=== PATIENT | male | born 1960 | race African-American/Black ===

== ENCOUNTER → 2016-08-07 | Outpatient (CLI) | payer BC ==
[2016-08-07 10:47] LABS: APPEARANCE,URINE SLIGHTLY-CLOUDY; BILIRUBIN,URINE NEGATIVE (NEGATIVE); GLUCOSE, URINE NEGATIVE (NEGATIVE); KETONES,URINE NEGATIVE (NEGATIVE); LEUKOCYTE ESTERASE,URINE NEGATIVE (NEGATIVE); NITRITE,URINE NEGATIVE (NEGATIVE); PROTEIN,URINE 30 mg/dL (NEGATIVE); URINE SPECIFIC GRAVITY 1.029; UROBILINOGEN,URINE NEGATIVE mg/dL (<2.0)
[2016-08-07 10:54] LABS: HEMATOCRIT 39.2 % (37.9-51.0); HEMOGLOBIN 13.2 g/dL (13.5-17.0); HGB HCT DIFFERENCE 0.4; MEAN CORPUSCULAR HEMOGLOBIN 30.8 pg (27.0-33.4); MEAN CORPUSCULAR HGB CONC 33.6 g/dL (32.0-36.0); MEAN CORPUSCULAR VOLUME 92 fl (80-97); RED BLOOD COUNT 4.28 10^6/uL (4.35-5.55); RED CELL DISTRIBUTION WIDTH 13.6 % (11.5-14.0); WHITE BLOOD COUNT 6.8 10^3/uL (4.0-10.5)
[2016-08-07 11:07] LABS: ALANINE AMINOTRANSFERASE 36 U/L (21-72); ALKALINE PHOSPHATASE 49 U/L (38-126); ANION GAP 11 (5-19); ASPARTATE AMINO TRANSFERASE 22 U/L (17-59); BILIRUBIN,TOTAL 1.5 mg/dL (0.2-1.3); BLOOD UREA NITROGEN 14 mg/dL (7-20); CALCIUM 9.3 mg/dL (8.4-10.2); CARBON DIOXIDE 29 mmol/L (22-30); CHLORIDE 99 mmol/L (98-107); CHOLESTEROL 114.54 mg/dL (0-200); CREATININE RESULT 0.85 mg/dL (0.52-1.25); Direct HDL 29 mg/dL (>40); GLUCOSE 161 mg/dL (75-110); MAGNESIUM 1.9 mg/dL (1.6-2.3); POTASSIUM 4.1 mmol/L (3.6-5.0); SODIUM 139.1 mmol/L (137-145); TRIGLYCERIDES 95 mg/dL (<150)
[2016-08-07 11:17] LABS: DIRECT LDL 68 mg/dL (<100)
== END ==
LOC: OD 09:30
PROVIDERS: ATTEND Internal Medicine Cardiovascular Disease
DX: Z79.899 Other long term (current) drug therapy (principal); E78.00 Pure hypercholesterolemia, unspecified
CPT/HCPCS: 36415; 80048; 80061; 80076; 81001; 82272; 83735; 85027

== ENCOUNTER → 2016-10-18 | Outpatient (CLI) | payer BC ==
[2016-10-18 10:28] LABS: HEMOGLOBIN 13.8 g/dL (13.5-17.0); HGB HCT DIFFERENCE 0.4; MEAN CORPUSCULAR HEMOGLOBIN 30.6 pg (27.0-33.4); MEAN CORPUSCULAR HGB CONC 33.6 g/dL (32.0-36.0); MEAN CORPUSCULAR VOLUME 91 fl (80-97); RED CELL DISTRIBUTION WIDTH 13.3 % (11.5-14.0); WHITE BLOOD COUNT 6.8 10^3/uL (4.0-10.5)
[2016-10-18 10:36] LABS: APPEARANCE,URINE CLEAR; BILIRUBIN,URINE NEGATIVE (NEGATIVE); GLUCOSE, URINE 150 mg/dL (NEGATIVE); KETONES,URINE NEGATIVE (NEGATIVE); LEUKOCYTE ESTERASE,URINE NEGATIVE (NEGATIVE); NITRITE,URINE NEGATIVE (NEGATIVE); PROTEIN,URINE NEGATIVE (NEGATIVE); URINE SPECIFIC GRAVITY 1.018; UROBILINOGEN,URINE NEGATIVE mg/dL (<2.0)
[2016-10-18 11:04] LABS: ALANINE AMINOTRANSFERASE 40 U/L (21-72); ALBUMIN 4.1 g/dL (3.5-5.0); ALKALINE PHOSPHATASE 50 U/L (38-126); ANION GAP 14 (5-19); ASPARTATE AMINO TRANSFERASE 20 U/L (17-59); BILIRUBIN,DIRECT 0.5 mg/dL (0.0-0.4); BILIRUBIN,TOTAL 1.3 mg/dL (0.2-1.3); BLOOD UREA NITROGEN 15 mg/dL (7-20); CALCIUM 9.2 mg/dL (8.4-10.2); CARBON DIOXIDE 29 mmol/L (22-30); CHLORIDE 97 mmol/L (98-107); CREATININE RESULT 0.88 mg/dL (0.52-1.25); GLUCOSE 175 mg/dL (75-110); POTASSIUM 4.4 mmol/L (3.6-5.0); SODIUM 139.6 mmol/L (137-145); TOTAL PROTEIN 7.5 g/dL (6.3-8.2)
== END ==
LOC: OD 08:56
PROVIDERS: ATTEND Internal Medicine Cardiovascular Disease
DX: Z79.01 Long term (current) use of anticoagulants (principal); Z79.899 Other long term (current) drug therapy
CPT/HCPCS: 36415; 80048; 80076; 81001; 82272; 83735; 85027; 85730

== ENCOUNTER → 2017-01-29 | Outpatient (CLI) | payer BC ==
[2017-01-29 11:32] LABS: APPEARANCE,URINE SLIGHTLY-CLOUDY; BILIRUBIN,URINE NEGATIVE (NEGATIVE); GLUCOSE, URINE NEGATIVE (NEGATIVE); KETONES,URINE NEGATIVE (NEGATIVE); LEUKOCYTE ESTERASE,URINE NEGATIVE (NEGATIVE); NITRITE,URINE NEGATIVE (NEGATIVE); PROTEIN,URINE 30 mg/dL (NEGATIVE); URINE SPECIFIC GRAVITY 1.034; UROBILINOGEN,URINE NEGATIVE mg/dL (<2.0)
[2017-01-29 11:41] LABS: HEMATOCRIT 39.6 % (37.9-51.0); HEMOGLOBIN 13.4 g/dL (13.5-17.0); HGB HCT DIFFERENCE 0.6; MEAN CORPUSCULAR HEMOGLOBIN 31.5 pg (27.0-33.4); MEAN CORPUSCULAR VOLUME 93 fl (80-97); RED BLOOD COUNT 4.27 10^6/uL (4.35-5.55); RED CELL DISTRIBUTION WIDTH 13.5 % (11.5-14.0); WHITE BLOOD COUNT 7.1 10^3/uL (4.0-10.5)
[2017-01-29 12:19] LABS: ALANINE AMINOTRANSFERASE 40 U/L (21-72); ALBUMIN 4.1 g/dL (3.5-5.0); ALKALINE PHOSPHATASE 51 U/L (38-126); ANION GAP 13 (5-19); ASPARTATE AMINO TRANSFERASE 21 U/L (17-59); BILIRUBIN,DIRECT 0.3 mg/dL (0.0-0.4); BILIRUBIN,TOTAL 1.1 mg/dL (0.2-1.3); BLOOD UREA NITROGEN 14 mg/dL (7-20); CALCIUM 9.5 mg/dL (8.4-10.2); CARBON DIOXIDE 28 mmol/L (22-30); CHLORIDE 100 mmol/L (98-107); CREATININE RESULT 0.93 mg/dL (0.52-1.25); GLUCOSE 135 mg/dL (75-110); MAGNESIUM 1.9 mg/dL (1.6-2.3); SODIUM 140.5 mmol/L (137-145); TOTAL PROTEIN 7.4 g/dL (6.3-8.2)
== END ==
LOC: OD 10:28
PROVIDERS: ATTEND Internal Medicine Cardiovascular Disease
DX: Z79.01 Long term (current) use of anticoagulants (principal); Z79.899 Other long term (current) drug therapy
CPT/HCPCS: 36415; 80048; 80076; 81001; 82272; 83735; 85027; 85730

== ENCOUNTER → 2017-07-17 | Outpatient (CLI) | payer BC ==
[2017-07-17 13:01] LABS: APPEARANCE,URINE SLIGHTLY-CLOUDY; BILIRUBIN,URINE NEGATIVE (NEGATIVE); COLOR,URINE YELLOW; GLUCOSE, URINE NEGATIVE (NEGATIVE); KETONES,URINE NEGATIVE (NEGATIVE); LEUKOCYTE ESTERASE,URINE NEGATIVE (NEGATIVE); NITRITE,URINE NEGATIVE (NEGATIVE); PROTEIN,URINE NEGATIVE (NEGATIVE); URINE SPECIFIC GRAVITY 1.027; UROBILINOGEN,URINE NEGATIVE mg/dL (<2.0)
[2017-07-17 13:20] LABS: ABSOLUTE EOSINOPHILS # (AUTO) 0.1 10^3/uL (0.0-0.6); ABSOLUTE LYMPHOCYTES (AUTO) 1.4 10^3/uL (0.5-4.7); ABSOLUTE MONOCYTES (AUTO) 0.6 10^3/uL (0.1-1.4); ABSOLUTE NEUT (AUTO) 4.5 10^3/uL (1.7-8.2); BASOPHILS % (AUTO) 0.2 % (0-2); EOSINOPHILS % (AUTO) 1.2 % (0-6); HEMOGLOBIN 13.9 g/dL (13.5-17.0); LYMPHOCYTES % (AUTO) 21.5 % (13-45); MEAN CORPUSCULAR HEMOGLOBIN 30.8 pg (27.0-33.4); MEAN CORPUSCULAR VOLUME 91 fl (80-97); MONOCYTES % (AUTO) 8.5 % (3-13); PLATELET COUNT 178 10^3/uL (150-450); RED BLOOD COUNT 4.52 10^6/uL (4.35-5.55); RED CELL DISTRIBUTION WIDTH 13.6 % (11.5-14.0); SEGMENTED NEUTROPHILS % (AUTO) 68.6 % (42-78); TOTAL CELLS COUNTED % (AUTO) 100 %; WHITE BLOOD COUNT 6.6 10^3/uL (4.0-10.5)
[2017-07-17 13:35] LABS: TRIGLYCERIDES 92 mg/dL (<150)
[2017-07-17 13:39] LABS: ALANINE AMINOTRANSFERASE 44 U/L (21-72); ALBUMIN 4.3 g/dL (3.5-5.0); ALKALINE PHOSPHATASE 43 U/L (38-126); ANION GAP 10 (5-19); ASPARTATE AMINO TRANSFERASE 26 U/L (17-59); BILIRUBIN,DIRECT 0.3 mg/dL (0.0-0.4); BILIRUBIN,TOTAL 1.4 mg/dL (0.2-1.3); BLOOD UREA NITROGEN 14 mg/dL (7-20); CALCIUM 9.7 mg/dL (8.4-10.2); CARBON DIOXIDE 27 mmol/L (22-30); CHLORIDE 100 mmol/L (98-107); GLUCOSE 163 mg/dL (75-110); MAGNESIUM 1.9 mg/dL (1.6-2.3); POTASSIUM 4.2 mmol/L (3.6-5.0); SODIUM 136.6 mmol/L (137-145); TOTAL PROTEIN 7.4 g/dL (6.3-8.2)
[2017-07-17 13:47] LABS: DIRECT LDL 86 mg/dL (<100)
== END ==
LOC: OD 11:49
PROVIDERS: ATTEND Internal Medicine Cardiovascular Disease
DX: I48.0 Paroxysmal atrial fibrillation (principal); Z79.01 Long term (current) use of anticoagulants; Z79.899 Other long term (current) drug therapy
CPT/HCPCS: 36415; 80048; 80061; 80076; 81001; 82272; 83735; 85025; 85730

== ENCOUNTER → 2017-10-25 | Outpatient (CLI) | payer BC ==
[2017-10-25 11:29] LABS: ABSOLUTE EOSINOPHILS # (AUTO) 0.1 10^3/uL (0.0-0.6); ABSOLUTE LYMPHOCYTES (AUTO) 1.2 10^3/uL (0.5-4.7); ABSOLUTE MONOCYTES (AUTO) 0.5 10^3/uL (0.1-1.4); ABSOLUTE NEUT (AUTO) 4.2 10^3/uL (1.7-8.2); BASOPHILS % (AUTO) 0.2 % (0-2); EOSINOPHILS % (AUTO) 1.3 % (0-6); HEMATOCRIT 39.4 % (37.9-51.0); HEMOGLOBIN 13.4 g/dL (13.5-17.0); LYMPHOCYTES % (AUTO) 20.4 % (13-45); MEAN CORPUSCULAR HEMOGLOBIN 31.2 pg (27.0-33.4); MEAN CORPUSCULAR HGB CONC 33.9 g/dL (32.0-36.0); MEAN CORPUSCULAR VOLUME 92 fl (80-97); MONOCYTES % (AUTO) 7.8 % (3-13); PLATELET COUNT 192 10^3/uL (150-450); RED BLOOD COUNT 4.29 10^6/uL (4.35-5.55); RED CELL DISTRIBUTION WIDTH 13.5 % (11.5-14.0); SEGMENTED NEUTROPHILS % (AUTO) 70.3 % (42-78); TOTAL CELLS COUNTED % (AUTO) 100 %
[2017-10-25 11:29] LABS: APPEARANCE,URINE CLEAR; BILIRUBIN,URINE NEGATIVE (NEGATIVE); COLOR,URINE YELLOW; GLUCOSE, URINE 150 mg/dL (NEGATIVE); KETONES,URINE NEGATIVE (NEGATIVE); LEUKOCYTE ESTERASE,URINE NEGATIVE (NEGATIVE); NITRITE,URINE NEGATIVE (NEGATIVE); PROTEIN,URINE NEGATIVE (NEGATIVE); URINE SPECIFIC GRAVITY 1.028; UROBILINOGEN,URINE NEGATIVE mg/dL (<2.0)
[2017-10-25 12:19] LABS: ALANINE AMINOTRANSFERASE 46 U/L (21-72); ALBUMIN 4.1 g/dL (3.5-5.0); ALKALINE PHOSPHATASE 41 U/L (38-126); ANION GAP 15 (5-19); ASPARTATE AMINO TRANSFERASE 23 U/L (17-59); BILIRUBIN,DIRECT 0.3 mg/dL (0.0-0.4); BILIRUBIN,TOTAL 1.2 mg/dL (0.2-1.3); BLOOD UREA NITROGEN 16 mg/dL (7-20); CALCIUM 9.3 mg/dL (8.4-10.2); CARBON DIOXIDE 28 mmol/L (22-30); CHLORIDE 100 mmol/L (98-107); GLUCOSE 181 mg/dL (75-110); POTASSIUM 4.2 mmol/L (3.6-5.0); SODIUM 142.9 mmol/L (137-145); TOTAL PROTEIN 7.3 g/dL (6.3-8.2)
== END ==
LOC: OD 09:46
PROVIDERS: ATTEND Internal Medicine Cardiovascular Disease
DX: E11.65 Type 2 diabetes mellitus with hyperglycemia (principal); I48.0 Paroxysmal atrial fibrillation; Z79.01 Long term (current) use of anticoagulants; Z79.899 Other long term (current) drug therapy
CPT/HCPCS: 36415; 80048; 80076; 81001; 82272; 83036; 83735; 85025; 85730

== ENCOUNTER → 2018-01-22 | Outpatient (CLI) | payer BC ==
[2018-01-22 13:55] LABS: APPEARANCE,URINE CLEAR; BILIRUBIN,URINE NEGATIVE (NEGATIVE); COLOR,URINE YELLOW; GLUCOSE, URINE NEGATIVE (NEGATIVE); KETONES,URINE NEGATIVE (NEGATIVE); LEUKOCYTE ESTERASE,URINE NEGATIVE (NEGATIVE); NITRITE,URINE NEGATIVE (NEGATIVE); PROTEIN,URINE NEGATIVE (NEGATIVE); URINE SPECIFIC GRAVITY 1.024; UROBILINOGEN,URINE NEGATIVE mg/dL (<2.0)
[2018-01-22 13:58] LABS: ABSOLUTE EOSINOPHILS # (AUTO) 0.1 10^3/uL (0.0-0.6); ABSOLUTE LYMPHOCYTES (AUTO) 1.6 10^3/uL (0.5-4.7); ABSOLUTE MONOCYTES (AUTO) 0.5 10^3/uL (0.1-1.4); ABSOLUTE NEUT (AUTO) 4.6 10^3/uL (1.7-8.2); BASOPHILS % (AUTO) 0.2 % (0-2); EOSINOPHILS % (AUTO) 1.2 % (0-6); HEMATOCRIT 39.2 % (37.9-51.0); HEMOGLOBIN 13.1 g/dL (13.5-17.0); MEAN CORPUSCULAR HEMOGLOBIN 30.6 pg (27.0-33.4); MEAN CORPUSCULAR HGB CONC 33.4 g/dL (32.0-36.0); MEAN CORPUSCULAR VOLUME 92 fl (80-97); MONOCYTES % (AUTO) 8.1 % (3-13); PLATELET COUNT 192 10^3/uL (150-450); RED BLOOD COUNT 4.27 10^6/uL (4.35-5.55); RED CELL DISTRIBUTION WIDTH 13.4 % (11.5-14.0); SEGMENTED NEUTROPHILS % (AUTO) 67.5 % (42-78); TOTAL CELLS COUNTED % (AUTO) 100 %; WHITE BLOOD COUNT 6.8 10^3/uL (4.0-10.5)
[2018-01-22 14:14] LABS: ALANINE AMINOTRANSFERASE 42 U/L (21-72); ALKALINE PHOSPHATASE 42 U/L (38-126); ANION GAP 14 (5-19); ASPARTATE AMINO TRANSFERASE 25 U/L (17-59); BILIRUBIN,DIRECT 0.2 mg/dL (0.0-0.4); BILIRUBIN,TOTAL 1.3 mg/dL (0.2-1.3); BLOOD UREA NITROGEN 12 mg/dL (7-20); CALCIUM 9.2 mg/dL (8.4-10.2); CARBON DIOXIDE 26 mmol/L (22-30); CHLORIDE 100 mmol/L (98-107); GLUCOSE 130 mg/dL (75-110); POTASSIUM 3.8 mmol/L (3.6-5.0); SODIUM 139.9 mmol/L (137-145); TOTAL PROTEIN 7.2 g/dL (6.3-8.2)
== END ==
LOC: OD 13:19
PROVIDERS: ATTEND Internal Medicine Cardiovascular Disease
DX: E11.65 Type 2 diabetes mellitus with hyperglycemia (principal); I48.0 Paroxysmal atrial fibrillation; Z79.01 Long term (current) use of anticoagulants; Z79.899 Other long term (current) drug therapy
CPT/HCPCS: 36415; 80048; 80076; 81001; 82272; 83036; 83735; 85025; 85730

== ENCOUNTER 2018-02-18 19:06 | Inpatient (IN) | payer BC ==
[2018-02-18] MEDS ORDERED: ACETAMINOPHEN 325 MG TABLET PO ONE (20:38)
[2018-02-18 21:04] LABS: HEMATOCRIT 41.3 % (37.9-51.0); HEMOGLOBIN 13.8 g/dL (13.5-17.0); MEAN CORPUSCULAR HEMOGLOBIN 30.9 pg (27.0-33.4); MEAN CORPUSCULAR HGB CONC 33.3 g/dL (32.0-36.0); MEAN CORPUSCULAR VOLUME 93 fl (80-97); PLATELET COUNT 194 10^3/uL (150-450); RED BLOOD COUNT 4.45 10^6/uL (4.35-5.55); RED CELL DISTRIBUTION WIDTH 13.4 % (11.5-14.0); WHITE BLOOD COUNT 19.5 10^3/uL (4.0-10.5)
[2018-02-18 21:15] LABS: ALANINE AMINOTRANSFERASE 37 U/L (21-72); ALBUMIN 4.2 g/dL (3.5-5.0); ALKALINE PHOSPHATASE 42 U/L (38-126); ANION GAP 16 (5-19); ASPARTATE AMINO TRANSFERASE 26 U/L (17-59); BILIRUBIN,DIRECT 0.3 mg/dL (0.0-0.4); BILIRUBIN,TOTAL 1.4 mg/dL (0.2-1.3); BLOOD UREA NITROGEN 15 mg/dL (7-20); CALCIUM 9.4 mg/dL (8.4-10.2); CARBON DIOXIDE 21 mmol/L (22-30); CHLORIDE 97 mmol/L (98-107); GLUCOSE 213 mg/dL (75-110); POTASSIUM 4.1 mmol/L (3.6-5.0); SODIUM 134.1 mmol/L (137-145); TOTAL PROTEIN 7.8 g/dL (6.3-8.2)
[2018-02-18 21:21] LABS: ABSOLUTE LYMPHOCYTES# (MANUAL) 0.6 10^3/uL (0.5-4.7); ABSOLUTE MONOCYTES # (MANUAL) 0.4 10^3/uL (0.1-1.4); ABSOLUTE NEUTROPHILS# (MANUAL) 18.5 10^3/uL (1.7-8.2); BAND NEUTROPHILS % (MANUAL) 7 % (3-5); BASOPHILS % (MANUAL) 0 % (0-2); EOSINOPHILS % (MANUAL) 0 % (0-6); LYMPHOCYTES % (MANUAL) 2 % (13-45); MONOCYTES % (MANUAL) 2 % (3-13); SEGMENTED NEUTROPHILS % (MAN) 88 % (42-78); TOTAL CELLS COUNTED 100
[2018-02-18 21:24] LABS: OVALOCYTES SLIGHT; POIKILOCYTOSIS SLIGHT
[2018-02-18 21:28] LABS: PLATELET COMMENT ADEQUATE; TOXIC VACUOLATION PRESENT
[2018-02-18 21:29] LABS: NUCLEATED RED BLOOD CELLS 0 /100 WBC (0)
[2018-02-18] MEDS ORDERED: VANCOMYCIN HCL INJ 1000 MG VIAL IV ONE (22:08)
[2018-02-18] MEDS ORDERED: PIPERACILLIN/TAZOBACTAM 3.375 GM VIAL IV ONE (22:15)
--- NOTE | 2018-02-18 22:19 | ER Document Report ---
ED General - General Chief Complaint: Leg Pain Stated Complaint: LEG PAIN Time Seen by Provider: 02/18/18 22:07 TRAVEL OUTSIDE OF THE [place] IN LAST 30 DAYS: No - HPI Notes: 57-year-old male with a history of diabetes presents with fever and pain in his left groin since this morning. He denies any chest pain, shortness of breath, abdominal pain, nausea, vomiting and diarrhea. No pain with urination. He has had this recurrently in the past with cellulitis of his left leg. He has chronic lymphedema. He has been drinking a lot of water today to help with "lymph node swelling." Last hospital admission for cellulitis in the left leg was about 5 years ago. He admits to traveling frequently to [place] to check on his ill mother, so has not been caring for himself as normal. - Related Data Allergies/Adverse Reactions: No Known Allergies Allergy (Verified 02/18/18 20:37) Past Medical History - Social History Smoking Status: Never Smoker Frequency of alcohol use: None Drug Abuse: None Family History: CAD - Significant CAD on both sides of family, [place] @ 27 on father 's side Patient has suicidal ideation: No Patient has homicidal ideation: No - Past Medical History Cardiac Medical History: Reports: Hx Atrial Fibrillation, Hx Hypercholesterolemia, Hx Hypertension Denies: Hx Congestive Heart Failure, Hx Coronary Artery Disease, Hx Heart Attack, Hx Peripheral Vascular Disease, Hx Heart Murmur Pulmonary Medical History: Denies: Hx Tuberculosis Endocrine Medical History: Reports: Hx Diabetes Mellitus Type 2 - Metformin and Januvia. Denies: Hx Graves' Disease, Hx Hyperthyroidism, Hx Hypothyroidism Renal/ Medical History: Denies: Hx Peritoneal Dialysis Musculoskeletal Medical History: Reports Hx Arthritis, Denies Hx Fibromyalgia, Denies Hx Muscular Dystrophy Traumatic Medical History: Denies: Hx Fractures Past Surgical History: Reports: Hx Orthopedic Surgery - right knee. Denies: Hx Pacemaker - Immunizations Hx Diphtheria, Pertussis, Tetanus Vaccination: Yes Review of Systems - Review of Systems Notes: Constitutional: Positive for fever. HENT: Negative for sore throat. Eyes: Negative for visual changes. Cardiovascular: Negative for chest pain. Respiratory: Negative for shortness of breath. Gastrointestinal: Negative for abdominal pain, vomiting or diarrhea. Genitourinary: Negative for dysuria. Musculoskeletal: Negative for back pain. Positive for chronic lymphedema and new left groin "lymph node pain." Skin: Negative for rash. Neurological: Negative for headaches, weakness or numbness. 10 point ROS negative except as marked above and in HPI. Physical Exam - Vital signs Vitals: Temp Pulse Resp BP Pulse Ox 101.8 F H 90 20 133/75 H 97 02/18/18 20:02 02/18/18 20:02 02/18/18 20:02 02/18/18 20:02 02/18/18 20:02 - Notes Notes: PHYSICAL EXAMINATION: GENERAL: Well-appearing, well-nourished and in no acute distress. Morbid obesity, febrile HEAD: Atraumatic, normocephalic. EYES: Pupils equal round and reactive to light, extraocular movements intact, conjunctiva are normal. ENT: nares patent, oropharynx clear without exudates. Moist mucous membranes. NECK: Normal range of motion, supple without lymphadenopathy LUNGS: Breath sounds clear to auscultation bilaterally and equal. No wheezes rales or rhonchi. HEART: Regular rate and rhythm, no chest wall tenderness ABDOMEN: Soft, nontender, normoactive bowel sounds. No guarding, no rebound. No masses appreciated. EXTREMITIES: Normal range of motion,. Chronic lymphedema bilateral legs with chronic venous stasis changes. Tenderness left groin without crepitus or erythema. No induration or fluctuance. NEUROLOGICAL: Cranial nerves grossly intact. Normal speech, normal gait. Normal sensory and motor exams. PSYCH: Normal mood, normal affect. SKIN: Warm, Dry, normal turgor, no rashes or lesions noted. Course - Re-evaluation Re-evalutation: 02/18/18 23:[address] Pruett for admission. Given vancomycin and Zosyn. Requested telemetry bed. Cultures ordered. Lactic acid pending. - Vital Signs Vital signs: Temp Pulse Resp BP Pulse Ox 101.8 F H 90 26 H 150/90 H 96 02/18/18 20:02 02/18/18 20:02 02/18/18 23:01 02/18/18 23:01 02/18/18 23:01 - Laboratory Result Diagrams: 02/18/18 20:42 02/18/18 20:42 Laboratory results interpreted by me: 02/18/18 02/18/18 02/18/18 20:42 20:42 22:40 WBC 19.5 H Seg Neuts % (Manual) 88 H Band Neutrophils % 7 H Lymphocytes % (Manual) 2 L Monocytes % (Manual) 2 L Abs Neuts (Manual) 18.5 H PT 15.9 H VBG pH Sodium 134.1 L Chloride 97 L Carbon Dioxide 21 L Glucose 213 H Total Bilirubin 1.4 H 02/18/18 22:40 WBC Seg Neuts % (Manual) Band Neutrophils % Lymphocytes % (Manual) Monocytes % (Manual) Abs Neuts (Manual) PT VBG pH 7.46 H Sodium Chloride Carbon Dioxide Glucose Total Bilirubin Discharge - Discharge Clinical Impression: Sepsis Qualifiers: Sepsis type: sepsis due to unspecified organism Qualified Code(s): A41.9 - Sepsis, unspecified organism Cellulitis Qualifiers: Site of cellulitis: extremity Site of cellulitis of extremity: lower extremity Laterality: left Qualified Code(s): L03.116 - Cellulitis of left lower limb Condition: Fair Disposition: ADMITTED INPATIENT Admitting Provider: Felicia Unit Admitted: Telemetry Referrals: CHAPIN PRUETT MD [Primary Care Provider] - Follow up as needed
--- NOTE | 2018-02-18 22:25 | RADIOLOGY REPORT (SQ) ---
EXAM DESCRIPTION: XR CHEST 2 VIEWS COMPLETED DATE/TME: 02/18/2018 20:38 CLINICAL HISTORY: 57 years, Male, LLE pain / FEVER COMPARISON: 10/30/2015 NUMBER OF VIEWS: Two TECHNIQUE: PA and lateral LIMITATIONS: None. FINDINGS: Cardial mediastinal silhouette is within normal limits. There is patchy perihilar and lower lobe density bilaterally particularly on the right. No lobar consolidation is noted. No pleural fluid. IMPRESSION: Patchy perihilar density with some peribronchial or cuffing and patchy areas of density in the lung bases. Question developing infectious or inflammatory process 2010 [employer]- All Rights Reserved
[2018-02-18 23:05] LABS: VENOUS BLOOD BASE EXCESS 1.3 mmol/L; VENOUS BLOOD HCO3 24.8 mmol/L (20-32); VENOUS BLOOD PCO2 35.6 mmHg (35-63); VENOUS BLOOD PH 7.46 (7.30-7.42)
[2018-02-18 23:09] LABS: INTERNATIONAL RATION (INR) 1.21; PROTHROMBIN TIME 15.9 SEC (11.4-15.4)
[2018-02-18] MEDS ORDERED: RINGERS SOLUTION,LACTATED 1,000 ML IV ONE (23:53)
[2018-02-19] MEDS ORDERED: IBUPROFEN 600 MG TABLET PO ONE (00:05)
[2018-02-19 00:45] LABS: APPEARANCE,URINE CLEAR; BILIRUBIN,URINE NEGATIVE (NEGATIVE); COLOR,URINE YELLOW; GLUCOSE, URINE 150 mg/dL (NEGATIVE); KETONES,URINE 20 mg/dL (NEGATIVE); LEUKOCYTE ESTERASE,URINE NEGATIVE (NEGATIVE); NITRITE,URINE NEGATIVE (NEGATIVE); PROTEIN,URINE NEGATIVE (NEGATIVE); URINE SPECIFIC GRAVITY 1.025; UROBILINOGEN,URINE NEGATIVE mg/dL (<2.0)
[2018-02-19] MEDS ORDERED: PIPERACILLIN SODIUM/TAZOBACTAM 3.375 GM in NORMAL SALINE 100 ML IV SCH (02:00)
[2018-02-19] MEDS ORDERED: VANCOMYCIN HCL INJ 1000 MG VIAL IV PRN (02:20)
[2018-02-19] MEDS ORDERED: PIPERACILLIN/TAZOBACTAM 3.375 GM VIAL IV PRN (02:27)
[2018-02-19] MEDS ORDERED: VANCOMYCIN HCL 1,000 MG in DEXTROSE 5%-WATER 250 ML IV ONE (02:30)
[2018-02-19] MEDS: PIPERACILLIN SODIUM/TAZOBACTAM 3.375 GM in NORMAL SALINE 100 ML IV SCH ×3 (05:47→21:55)
--- NOTE | 2018-02-19 07:37 | EKG REPORT ---
SEVERITY:- ABNORMAL ECG - SINUS RHYTHM NONSPECIFIC T ABNORMALITIES, DIFFUSE LEADS BORDERLINE PROLONGED QT INTERVAL : Confirmed by: Jay Barrera MD 19-Feb-2018 07:36:49
[2018-02-19] MEDS ORDERED: NITROGLYCERIN 0.4 MG/TAB 25 TAB/BOTTLE SL PRN (08:25)
--- NOTE | 2018-02-19 08:45 | PDOC H&P ---
History of Present Illness Admission Date/PCP: 02/18/18 23:35 CHAPIN SEBLE Patient complains of: Left leg and groin pain History of Present Illness: BRANDY ANDREA JR is a 57 year old male patient known to my practice who presented to the ED with worsening left leg and groin pain. Patient reported onset of pain for about 2 days prior to his presentation and has been applying Vaseline ointment to leg without improvement. There is persistent dryness to his leg skin. He reported similar event floyd couple of years. Due to onset of fever and worsening groin pain he decided to seek medical attention. He denied any recent instrumentation or procedure in the left leg but admitted to frequent travelling to [place] to check on his sick mother. There is history of chronic lymphedema of lower extremities. He claimed compliance with use f compression stocking. His evaluation in the ED was remarkable for leukocytosis with left shift and fever with temperature at 101.8F. His morbidities include chronic atrial fibrillation, Diabetes Mellitus Type 2, Hypertension, Hyperlipidemia, and osteoarthritis. He was advised hospitalization for further evaluation and management. Past Medical History Cardiac Medical History: Reports: Atrial Fibrillation, Hyperlipidema, Hypertension Denies: Congestive Heart Failure, Coronary Artery Disease, Myocardial Infarction, Peripheral Vascular Disease, Heart Murmur Pulmonary Medical History: Denies: Tuberculosis Endocrine Medical History: Reports: Diabetes Mellitus Type 2 - Metformin and Januvia Denies: Hyperthyroidism, Hypothyroidism Musculoskeltal Medical History: Reports: Arthritis Denies: Fibromyalgia Past Surgical History Past Surgical History: Reports: Orthopedic Surgery - right knee Denies: Pacemaker Social History Smoking Status: Never Smoker Frequency of Alcohol Use: None Hx Recreational Drug Use: No Drugs: None Hx Prescription Drug Abuse: No Family History Family History: CAD - Significant CAD on both sides of family, [place] @ 27 on father 's side Parental Family History Reviewed: Yes Children Family History Reviewed: Yes Sibling(s) Family History Reviewed.: Yes Medication/Allergy Home Medications: Aspirin [Aspirin 81 mg Chewable Tablet] 81 mg PO DAILY 02/19/18 Benazepril/Hydrochlorothiazide [Benazepril-Hctz 20-25 mg Tab] 1 tab PO DAILY 11/01 Diltiazem HCl [Diltiazem ER] 120 mg PO DAILY 02/19/18 Hydrochlorothiazide [Hydrodiuril 25 mg Tablet] 25 mg PO QAM 02/19/18 Magnesium Oxide [Magnesium] 500 mg PO DAILY 02/19/18 Nitroglycerin [Nitrostat] 0.4 mg SL PRN PRN 02/19/18 Potassium Chloride [Klor-Con] 20 meq PO DAILY 02/19/18 Rivaroxaban [Xarelto 10 mg Tablet] 20 mg PO DAILY 02/19/18 Rosuvastatin Calcium [Crestor] 10 mg PO DAILY 02/19/18 Sitagliptin Phos/Metformin HCl [Janumet 50-1,000 Mg Tablet] 1 each PO DAILY 11/01 Sotalol HCl [Sotalol Af] 120 mg PO DAILY 02/19/18 Allergies/Adverse Reactions: No Known Allergies Allergy (Verified 02/18/18 20:37) Review of Systems Constitutional: PRESENT: fever(s) Eyes: PRESENT: visual disturbances Ears: ABSENT: hearing changes Nose, Mouth, and Throat: ABSENT: as per HPI, headache(s), mouth pain, sore throat, vertigo, other Cardiovascular: ABSENT: chest pain, dyspnea on exertion, edema, orthropnea, palpitations Respiratory: ABSENT: cough, hemoptysis Gastrointestinal: ABSENT: abdominal pain, constipation, diarrhea, hematemesis, hematochezia, nausea, vomiting Genitourinary: ABSENT: dysuria, hematuria Musculoskeletal: PRESENT: other - left leg pain. ABSENT: joint swelling Integumentary: ABSENT: rash, wounds Neurological: ABSENT: abnormal gait, abnormal speech, confusion, dizziness, focal weakness, syncope Psychiatric: ABSENT: anxiety, depression, homidical ideation, suicidal ideation Endocrine: ABSENT: cold intolerance, heat intolerance, polydipsia, polyuria Hematologic/Lymphatic: PRESENT: lymphadenopathy - left groin region with reported pain Allergic/Immunologic: ABSENT: seasonal rhinorrhea Physical Exam Vital Signs: Temp Pulse Resp BP Pulse Ox 98.3 F 87 18 124/79 100 02/19/18 07:20 02/19/18 07:20 02/19/18 07:20 02/19/18 07:20 02/19/18 07:20 Intake & Output 02/18/18 02/19/18 02/20/18 06:59 06:59 06:59 Intake Total 1100 Balance 1100 Weight 140.1 kg General appearance: PRESENT: morbidly obese Head exam: PRESENT: atraumatic, normocephalic Eye exam: PRESENT: conjunctiva pink, EOMI, PERRLA. ABSENT: scleral icterus Ear exam: PRESENT: normal external ear exam Mouth exam: PRESENT: moist, tongue midline Neck exam: PRESENT: full ROM. ABSENT: carotid bruit, JVD, lymphadenopathy, thyromegaly Respiratory exam: PRESENT: clear to auscultation vu Cardiovascular exam: PRESENT: irregular rhythm, +S1, +S2. ABSENT: diastolic murmur, systolic murmur Vascular exam: PRESENT: normal capillary refill. ABSENT: pallor GI/Abdominal exam: PRESENT: normal bowel sounds, soft. ABSENT: distended, guarding, mass, organolmegaly, rebound, tenderness Rectal exam: PRESENT: deferred Extremities exam: ABSENT: pedal edema - nonpitting and related to his lymphedema Musculoskeletal exam: PRESENT: deformity - multiple joints involvement with arthritis, tenderness - related to left groin palpable adenopathy Neurological exam: PRESENT: alert, awake, oriented to person, oriented to place , oriented to time, oriented to situation, CN II-XII grossly intact. ABSENT: motor sensory deficit Psychiatric exam: PRESENT: appropriate affect, normal mood. ABSENT: homicidal ideation, suicidal ideation Skin exam: PRESENT: dry - extremely dry with scaling imprints, intact, warm. ABSENT: cyanosis, rash Results Laboratory Results: 02/19/18 02/19/18 00:34 02:39 Lactic Acid 2.1 Urine Color YELLOW Urine Appearance CLEAR Urine pH 6.0 Ur Specific [place] 1.025 Urine Protein NEGATIVE Urine Glucose (UA) 150 H Urine Ketones 20 H Urine Blood NEGATIVE Urine Nitrite NEGATIVE Ur Leukocyte Esterase NEGATIVE Urine WBC (Auto) 1 Urine RBC (Auto) 1 Impressions: Chest X-Ray 02/18/18 20:38 IMPRESSION: Patchy perihilar density with some peribronchial or cuffing and patchy areas of density in the lung bases. Question developing infectious or inflammatory process 2010 [employer]- All Rights Reserved Assessment & Plan - Diagnosis (1) Cellulitis of left leg Is this a current diagnosis for this admission?: Yes Plan: See admitting attending physician orders. (2) Probable sepsis Is this a current diagnosis for this admission?: Yes Plan: See admitting attending physician orders. (3) Diabetes mellitus type 2 in obese Is this a current diagnosis for this admission?: Yes Plan: See admitting attending physician orders. (4) HTN (hypertension) Qualifiers: Hypertension type: essential hypertension Qualified Code(s): I10 - Essential (primary) hypertension Is this a current diagnosis for this admission?: Yes Plan: See admitting attending physician orders. (5) HLD (hyperlipidemia) Qualifiers: Hyperlipidemia type: unspecified Qualified Code(s): E78.5 - Hyperlipidemia , unspecified Is this a current diagnosis for this admission?: Yes Plan: See admitting attending physician orders. (6) Chronic atrial fibrillation Is this a current diagnosis for this admission?: Yes Plan: See admitting attending physician orders. (7) Osteoarthritis involving multiple joints on both sides of body Is this a current diagnosis for this admission?: Yes Plan: See admitting attending physician orders. - Time Time Spent: 50 to 70 Minutes Medications reviewed and adjusted accordingly: Yes Anticipated discharge: Home Within: Other - Inpatient Certification Based on my medical assessment, after consideration of the patient's comorbidities, presenting symptoms, or acuity I expect that the services needed warrant INPATIENT care.: Yes I certify that my determination is in accordance with my understanding of Medicare's requirements for reasonable and necessary INPATIENT services [42 CFR 412.3e].: Yes Medical Necessity: Need Close Monitoring Due to Risk of Patient Decompensation, Need For IV Fluids, Need For Continuous Telemetry Monitoring, Need for IV Antibiotics, Risk of Complication if Not Cared For in Hospital Post Hospital Care: D/C [employer] Developer Documentation - Plan Summary Plan Summary: See admitting attending physician orders.
[2018-02-19] MEDS ORDERED: INSULIN LISPRO 100 UNIT/ML 3 ML VIAL SUBCUT PRN (08:46)
[2018-02-19] MEDS ORDERED: DEXTROSE 50%-WATER 25 GM/50 ML DISP.SYRIN IV PRN ×2 (08:46)
[2018-02-19] MEDS ORDERED: GLUCAGON,HUMAN RECOMB 1 MG INJ IM PRN (08:46)
[2018-02-19] MEDS ORDERED: DEXTROSE 40% GEL 15 GM TUBE PO PRN ×2 (08:46)
[2018-02-19] MEDS ORDERED: VANCOMYCIN HCL 0 MG in DEXTROSE 5%-WATER 250 ML IV NR (09:00)
[2018-02-19] MEDS: METFORMIN HCL 500 MG TABLET PO SCH ×2 (09:17→16:32)
[2018-02-19] MEDS: SITAGLIPTIN PHOSPHATE 25 MG TABLET PO SCH ×2 (09:17→16:32)
[2018-02-19] MEDS: LANSOPRAZOLE 30 MG TAB.RAP.DR PO SCH (09:17)
[2018-02-19] MEDS: DILTIAZEM HCL 120 MG CAP.SR.24H PO SCH (09:18)
[2018-02-19] MEDS: BENAZEPRIL HCL 20 MG TABLET PO SCH (09:19)
[2018-02-19] MEDS: ASPIRIN 81 MG TABLET, ENT COATED PO SCH (09:19)
[2018-02-19] MEDS: POTASSIUM CHLORIDE 10 MEQ CAPSULE.ER PO SCH (09:20)
[2018-02-19] MEDS: MAGNESIUM OXIDE 400 MG TABLET PO SCH (09:21)
[2018-02-19] MEDS ORDERED: RIVAROXABAN 10 MG TABLET PO SCH (10:00)
[2018-02-19] MEDS ORDERED: HYDROCHLOROTHIAZIDE 25 MG TABLET PO SCH (10:00)
[2018-02-19] MEDS ORDERED: (PENDING PHARMACY ID) (Sitagliptin Phos/Metformin Hcl [Janumet 50-1,000 Mg Tablet] 1 EACH) PO SCH (10:00)
[2018-02-19] MEDS ORDERED: SOTALOL HCL 120 MG PO SCH (10:00)
[2018-02-19] MEDS ORDERED: LANSOPRAZOLE 15 MG TAB.RAP.DR PO SCH (10:00)
[2018-02-19] MEDS ORDERED: ASPIRIN 81 MG TABLET, CHEWABLE PO SCH (10:00)
[2018-02-19] MEDS ORDERED: HYDROCHLOROTHIAZIDE PO SCH (10:00)
[2018-02-19] MEDS ORDERED: [UNRECOGNIZED DRUG - OTHER] PO SCH (10:00)
[2018-02-19] MEDS ORDERED: (PENDING PHARMACY ID) (Diltiazem Hcl [Diltiazem Er] 120 MG) PO SCH (10:00)
[2018-02-19] MEDS ORDERED: (PENDING PHARMACY ID) (Magnesium Oxide [Magnesium] 500 MG) PO SCH (10:00)
[2018-02-19] MEDS ORDERED: ENOXAPARIN SODIUM INJ 40 MG/0.4 ML DISP.SYRIN SUBCUT SCH (10:00)
[2018-02-19] MEDS ORDERED: VANCOMYCIN HCL 1,000 MG in DEXTROSE 5%-WATER 250 ML IV SCH (10:00)
[2018-02-19] MEDS ORDERED: (PENDING PHARMACY ID) (Potassium Chloride [Klor-Con] 20 MEQ) PO SCH (10:00)
[2018-02-19] MEDS ORDERED: BENAZEPRIL PO SCH (10:00)
[2018-02-19] MEDS: VANCOMYCIN HCL 1,500 MG in DEXTROSE 5%-WATER 250 ML IV SCH ×2 (15:11→21:56)
[2018-02-19] MEDS ORDERED: ATORVASTATIN CALCIUM 20 MG TABLET PO SCH (22:00)
[2018-02-20] MEDS: VANCOMYCIN HCL 1,500 MG in DEXTROSE 5%-WATER 250 ML IV SCH ×3 (09:19→23:05)
[2018-02-20] MEDS: LANSOPRAZOLE 30 MG TAB.RAP.DR PO SCH (09:19)
[2018-02-20 09:23] LABS: ABSOLUTE EOSINOPHILS # (AUTO) 0.1 10^3/uL (0.0-0.6); ABSOLUTE LYMPHOCYTES (AUTO) 1.5 10^3/uL (0.5-4.7); ABSOLUTE MONOCYTES (AUTO) 1.1 10^3/uL (0.1-1.4); ABSOLUTE NEUT (AUTO) 7.6 10^3/uL (1.7-8.2); BASOPHILS % (AUTO) 0.2 % (0-2); EOSINOPHILS % (AUTO) 0.9 % (0-6); HEMATOCRIT 37.7 % (37.9-51.0); HEMOGLOBIN 12.9 g/dL (13.5-17.0); LYMPHOCYTES % (AUTO) 14.8 % (13-45); MEAN CORPUSCULAR HEMOGLOBIN 31.1 pg (27.0-33.4); MEAN CORPUSCULAR HGB CONC 34.2 g/dL (32.0-36.0); MEAN CORPUSCULAR VOLUME 91 fl (80-97); MONOCYTES % (AUTO) 10.4 % (3-13); PLATELET COUNT 156 10^3/uL (150-450); RED BLOOD COUNT 4.14 10^6/uL (4.35-5.55); RED CELL DISTRIBUTION WIDTH 13.5 % (11.5-14.0); SEGMENTED NEUTROPHILS % (AUTO) 73.7 % (42-78); TOTAL CELLS COUNTED % (AUTO) 100 %; WHITE BLOOD COUNT 10.3 10^3/uL (4.0-10.5)
[2018-02-20] MEDS: BENAZEPRIL HCL 20 MG TABLET PO SCH (09:27)
[2018-02-20] MEDS: ASPIRIN 81 MG TABLET, ENT COATED PO SCH (09:27)
[2018-02-20] MEDS: POTASSIUM CHLORIDE 10 MEQ CAPSULE.ER PO SCH (09:27)
[2018-02-20] MEDS: SITAGLIPTIN PHOSPHATE 25 MG TABLET PO SCH ×2 (09:28→22:09)
[2018-02-20] MEDS: METFORMIN HCL 500 MG TABLET PO SCH ×2 (09:28→22:09)
[2018-02-20] MEDS: HYDROCHLOROTHIAZIDE 25 MG TABLET PO SCH (09:28)
[2018-02-20 09:29] LABS: ALANINE AMINOTRANSFERASE 39 U/L (21-72); ALBUMIN 3.6 g/dL (3.5-5.0); ALKALINE PHOSPHATASE 37 U/L (38-126); ANION GAP 12 (5-19); ASPARTATE AMINO TRANSFERASE 24 U/L (17-59); BILIRUBIN,DIRECT 0.2 mg/dL (0.0-0.4); BILIRUBIN,TOTAL 1.4 mg/dL (0.2-1.3); BLOOD UREA NITROGEN 15 mg/dL (7-20); CALCIUM 8.9 mg/dL (8.4-10.2); CARBON DIOXIDE 24 mmol/L (22-30); CHLORIDE 100 mmol/L (98-107); CHOLESTEROL 100.13 mg/dL (0-200); DIRECT LDL 48 mg/dL (<100); GLUCOSE 141 mg/dL (75-110); POTASSIUM 3.9 mmol/L (3.6-5.0); SODIUM 136.3 mmol/L (137-145); TOTAL PROTEIN 6.9 g/dL (6.3-8.2); TRIGLYCERIDES 118 mg/dL (<150); VLDL CHOLESTEROL 23.6 mg/dL (10-31)
[2018-02-20] MEDS: DILTIAZEM HCL 120 MG CAP.SR.24H PO SCH (09:29)
[2018-02-20] MEDS: MAGNESIUM OXIDE 400 MG TABLET PO SCH (09:29)
[2018-02-20] MEDS ORDERED: ATORVASTATIN CALCIUM 20 MG TABLET PO SCH (10:00)
[2018-02-20] MEDS: PIPERACILLIN SODIUM/TAZOBACTAM 3.375 GM in NORMAL SALINE 100 ML IV SCH ×3 (10:01→22:08)
[2018-02-20] MEDS: SOTALOL HCL 80 MG TABLET PO SCH (10:01)
[2018-02-20 15:27] LABS: VANCOMYCIN,TROUGH 17.9 ug/mL (5.0-20.0)
--- NOTE | 2018-02-20 18:44 | PDOC PROGRESS REPORT ---
Subjective Progress Note for:: 02/20/18 Subjective:: Patient denied any recurrent fever or chills. Left groin pain resolved significantly. No chest pain. No difficulty with breathing. No abdominal pain, nausea, or vomiting. Remain on IV Vancomycin and Zosyn coverage. Reason For Visit: SEPSIS, CELLULITIS Physical Exam Vital Signs: Temp Pulse Resp BP Pulse Ox 97.6 F 65 18 117/66 98 02/20/18 15:20 02/20/18 15:20 02/20/18 15:20 02/20/18 15:20 02/20/18 15:20 Intake & Output 02/19/18 02/20/18 02/21/18 06:59 06:59 06:59 Intake Total 1100 1606 825 Output Total 1875 Balance 1100 -269 825 Weight 140.1 kg 140.6 kg General appearance: PRESENT: no acute distress, morbidly obese Head exam: PRESENT: atraumatic, normocephalic Eye exam: PRESENT: conjunctiva pink, EOMI, PERRLA. ABSENT: scleral icterus Ear exam: PRESENT: normal external ear exam Mouth exam: PRESENT: moist Respiratory exam: PRESENT: clear to auscultation vu Cardiovascular exam: PRESENT: irregular rhythm, +S1, +S2. ABSENT: diastolic murmur, systolic murmur Vascular exam: ABSENT: pallor GI/Abdominal exam: PRESENT: normal bowel sounds, soft. ABSENT: distended, guarding, mass, organolmegaly, rebound, tenderness Extremities exam: PRESENT: pedal edema - chronic lymphedema with stasis changes. Musculoskeletal exam: PRESENT: tenderness - minimal to deep palpation over left groin adenopathy Neurological exam: PRESENT: alert, awake, oriented to person, oriented to place , oriented to time, oriented to situation, CN II-XII grossly intact. ABSENT: motor sensory deficit Psychiatric exam: PRESENT: appropriate affect, normal mood. ABSENT: homicidal ideation, suicidal ideation Skin exam: PRESENT: dry, warm Results Laboratory Results: 02/20/18 06:09 02/20/18 06:09 02/20/18 02/20/18 06:09 06:09 WBC 10.3 RBC 4.14 L Hgb 12.9 L Hct 37.7 L MCV 91 MCH 31.1 MCHC 34.2 RDW 13.5 Plt Count 156 Seg Neutrophils % 73.7 Lymphocytes % 14.8 Monocytes % 10.4 Eosinophils % 0.9 Basophils % 0.2 Absolute Neutrophils 7.6 Absolute Lymphocytes 1.5 Absolute Monocytes 1.1 Absolute Eosinophils 0.1 Absolute Basophils 0.0 Sodium 136.3 L Potassium 3.9 Chloride 100 Carbon Dioxide 24 Anion Gap 12 BUN 15 Creatinine 1.14 Est GFR ( Amer) > 60 Est GFR (Non-Af Amer) > 60 Glucose 141 H Calcium 8.9 Total Bilirubin 1.4 H AST 24 ALT 39 Alkaline Phosphatase 37 L Total Protein 6.9 Albumin 3.6 Triglycerides 118 Cholesterol 100.13 LDL Cholesterol Direct 48 VLDL Cholesterol 23.6 HDL Cholesterol 29 L Impressions: Chest X-Ray 02/18/18 20:38 IMPRESSION: Patchy perihilar density with some peribronchial or cuffing and patchy areas of density in the lung bases. Question developing infectious or inflammatory process 2010 [employer]- All Rights Reserved Assessment & Plan - Diagnosis (1) Cellulitis of left leg Is this a current diagnosis for this admission?: Yes (2) Probable sepsis Is this a current diagnosis for this admission?: Yes (3) Diabetes mellitus type 2 in obese Is this a current diagnosis for this admission?: Yes (4) HTN (hypertension) Qualifiers: Hypertension type: essential hypertension Qualified Code(s): I10 - Essential (primary) hypertension Is this a current diagnosis for this admission?: Yes (5) HLD (hyperlipidemia) Qualifiers: Hyperlipidemia type: unspecified Qualified Code(s): E78.5 - Hyperlipidemia , unspecified Is this a current diagnosis for this admission?: Yes (6) Chronic atrial fibrillation Is this a current diagnosis for this admission?: Yes (7) Osteoarthritis involving multiple joints on both sides of body Is this a current diagnosis for this admission?: Yes - Time Time Spent with patient: 25-34 minutes Medications reviewed and adjusted accordingly: Yes Anticipated discharge: Home Within: Other - Inpatient Certification Based on my medical assessment, after consideration of the patient's comorbidities, presenting symptoms, or acuity I expect that the services needed warrant INPATIENT care.: Yes I certify that my determination is in accordance with my understanding of Medicare's requirements for reasonable and necessary INPATIENT services [42 CFR 412.3e].: Yes Medical Necessity: Need Close Monitoring Due to Risk of Patient Decompensation, Need For IV Fluids, Need For Continuous Telemetry Monitoring, Need for IV Antibiotics, Risk of Complication if Not Cared For in Hospital Post Hospital Care: D/C Warranty Manager Documentation - Plan Summary Plan Summary: See attending physician orders. Follow up on blood and urine culture. Emphasized washing affected leg region with chlorhexidine solution.
[2018-02-20] MEDS: RIVAROXABAN 10 MG TABLET PO SCH (22:08)
[2018-02-21] MEDS: PIPERACILLIN SODIUM/TAZOBACTAM 3.375 GM in NORMAL SALINE 100 ML IV SCH ×3 (05:52→21:39)
[2018-02-21] MEDS: LANSOPRAZOLE 30 MG TAB.RAP.DR PO SCH (06:39)
[2018-02-21] MEDS: VANCOMYCIN HCL 1,500 MG in DEXTROSE 5%-WATER 250 ML IV SCH ×3 (06:49→23:47)
[2018-02-21] MEDS: HYDROCHLOROTHIAZIDE 25 MG TABLET PO SCH (08:54)
[2018-02-21] MEDS: METFORMIN HCL 500 MG TABLET PO SCH ×2 (08:55→20:12)
[2018-02-21] MEDS: SITAGLIPTIN PHOSPHATE 25 MG TABLET PO SCH ×2 (08:55→20:12)
[2018-02-21] MEDS: DILTIAZEM HCL 120 MG CAP.SR.24H PO SCH ×3 (09:44→21:23)
[2018-02-21] MEDS: POTASSIUM CHLORIDE 10 MEQ CAPSULE.ER PO SCH (11:07)
[2018-02-21] MEDS: ASPIRIN 81 MG TABLET, ENT COATED PO SCH (11:07)
[2018-02-21] MEDS: MAGNESIUM OXIDE 400 MG TABLET PO SCH (11:09)
[2018-02-21] MEDS: BENAZEPRIL HCL 20 MG TABLET PO SCH (11:11)
[2018-02-21] MEDS: SOTALOL HCL 80 MG TABLET PO SCH ×6 (14:18→23:50)
--- NOTE | 2018-02-21 15:31 | PDOC PROGRESS REPORT ---
Subjective Progress Note for:: 02/21/18 Subjective:: No chest pain or difficulty with breathing. Patient denied fever or chills. Left groin pain resolved significantly. Remain on IV Vancomycin and Zosyn coverage. No abdominal pain, nausea, or vomiting. Reason For Visit: SEPSIS, CELLULITIS Physical Exam Vital Signs: Temp Pulse Resp BP Pulse Ox 97.6 F 86 16 119/74 96 02/21/18 11:03 02/21/18 11:03 02/21/18 11:03 02/21/18 11:03 02/21/18 11:03 Intake & Output 02/20/18 02/21/18 02/22/18 06:59 06:59 06:59 Intake Total 1606 1725 1178 Output Total 1875 Balance -269 1725 1178 Weight 140.6 kg 140.2 kg Physical Exam: General appearance: PRESENT: no acute distress, morbidly obese Head exam: PRESENT: atraumatic, normocephalic Eye exam: PRESENT: conjunctiva pink, EOMI, PERRLA. ABSENT: scleral icterus Ear exam: PRESENT: normal external ear exam Mouth exam: PRESENT: moist Respiratory exam: PRESENT: clear to auscultation vu Cardiovascular exam: PRESENT: irregular rhythm, +S1, +S2. ABSENT: diastolic murmur, systolic murmur Vascular exam: ABSENT: pallor GI/Abdominal exam: PRESENT: normal bowel sounds, soft. ABSENT: distended, guarding, mass, organomegaly, rebound, tenderness Extremities exam: PRESENT: pedal edema - chronic lymphedema with stasis changes. Musculoskeletal exam: PRESENT: tenderness - minimal to deep palpation over left groin adenopathy Neurological exam: PRESENT: alert, awake, oriented to person, oriented to place , oriented to time, oriented to situation, CN II-XII grossly intact. ABSENT: motor sensory deficit Psychiatric exam: PRESENT: appropriate affect, normal mood. ABSENT: homicidal ideation, suicidal ideation Skin exam: PRESENT: dry, warm Results Laboratory Results: 02/20/18 06:09 02/20/18 06:09 02/19/18 00:34 Clean Catch Midstream Urine Culture - Final NO GROWTH 2 DAYS Impressions: Chest X-Ray 02/18/18 20:38 IMPRESSION: Patchy perihilar density with some peribronchial or cuffing and patchy areas of density in the lung bases. Question developing infectious or inflammatory process 2010 [employer]- All Rights Reserved Assessment & Plan - Diagnosis (1) Cellulitis of left leg Is this a current diagnosis for this admission?: Yes (2) Probable sepsis Is this a current diagnosis for this admission?: Yes Plan: Urine culture revealed no growth x 2 days as final. Follow up on blood culture findings. Continue IV Vancomycin and Zosyn coverage. (3) Diabetes mellitus type 2 in obese Is this a current diagnosis for this admission?: Yes (4) HTN (hypertension) Qualifiers: Hypertension type: essential hypertension Qualified Code(s): I10 - Essential (primary) hypertension Is this a current diagnosis for this admission?: Yes (5) HLD (hyperlipidemia) Qualifiers: Hyperlipidemia type: unspecified Qualified Code(s): E78.5 - Hyperlipidemia , unspecified Is this a current diagnosis for this admission?: Yes (6) Chronic atrial fibrillation Is this a current diagnosis for this admission?: Yes (7) Osteoarthritis involving multiple joints on both sides of body Is this a current diagnosis for this admission?: Yes - Time Time Spent with patient: 25-34 minutes Medications reviewed and adjusted accordingly: Yes Anticipated discharge: Home Within: Other - Inpatient Certification Based on my medical assessment, after consideration of the patient's comorbidities, presenting symptoms, or acuity I expect that the services needed warrant INPATIENT care.: Yes I certify that my determination is in accordance with my understanding of Medicare's requirements for reasonable and necessary INPATIENT services [42 CFR 412.3e].: Yes Medical Necessity: Need Close Monitoring Due to Risk of Patient Decompensation, Need For IV Fluids, Need For Continuous Telemetry Monitoring, Need for IV Antibiotics, Risk of Complication if Not Cared For in Hospital Post Hospital Care: D/C Lining [employer] Blind[employer]ch Documentation - Plan Summary Plan Summary: See attending physician orders.
[2018-02-21] MEDS ORDERED: MAGNESIUM OXIDE 400 MG TABLET PO SCH (18:00)
[2018-02-21] MEDS: RIVAROXABAN 10 MG TABLET PO SCH (21:23)
[2018-02-21] MEDS ORDERED: ATORVASTATIN CALCIUM 20 MG TABLET PO SCH (22:00)
[2018-02-22] MEDS: PIPERACILLIN SODIUM/TAZOBACTAM 3.375 GM in NORMAL SALINE 100 ML IV SCH ×3 (05:23→21:12)
[2018-02-22] MEDS: VANCOMYCIN HCL 1,500 MG in DEXTROSE 5%-WATER 250 ML IV SCH ×3 (05:25→22:57)
[2018-02-22] MEDS: LANSOPRAZOLE 30 MG TAB.RAP.DR PO SCH (05:25)
[2018-02-22] MEDS: ATORVASTATIN CALCIUM 20 MG TABLET PO SCH (08:22)
[2018-02-22] MEDS: DILTIAZEM HCL 120 MG CAP.SR.24H PO SCH ×2 (08:22→21:11)
[2018-02-22] MEDS: ASPIRIN 81 MG TABLET, ENT COATED PO SCH (08:23)
[2018-02-22] MEDS: POTASSIUM CHLORIDE 10 MEQ CAPSULE.ER PO SCH (08:23)
[2018-02-22] MEDS: MAGNESIUM OXIDE 400 MG TABLET PO SCH ×2 (08:23→21:15)
[2018-02-22] MEDS: METFORMIN HCL 500 MG TABLET PO SCH ×2 (08:23→18:03)
[2018-02-22] MEDS: HYDROCHLOROTHIAZIDE 25 MG TABLET PO SCH (08:23)
[2018-02-22] MEDS: SITAGLIPTIN PHOSPHATE 25 MG TABLET PO SCH ×2 (08:23→18:03)
[2018-02-22] MEDS: BENAZEPRIL HCL 20 MG TABLET PO SCH (08:25)
[2018-02-22] MEDS: SOTALOL HCL 80 MG TABLET PO SCH ×2 (08:25→19:07)
--- NOTE | 2018-02-22 16:27 | PDOC PROGRESS REPORT ---
Subjective Progress Note for:: 02/22/18 Subjective:: Patient seen by the bedside, he was admitted for the management of cellulitis of left leg with associated SIRS Reason For Visit: SEPSIS, CELLULITIS Physical Exam Vital Signs: Temp Pulse Resp BP Pulse Ox 98.4 F 100 18 132/69 H 96 02/22/18 15:04 02/22/18 15:04 02/22/18 15:04 02/22/18 15:04 02/22/18 15:04 Intake & Output 02/21/18 02/22/18 02/23/18 06:59 06:59 06:59 Intake Total 1725 2583 Output Total 324 Balance 1725 2259 Weight 140.2 kg 137 kg General appearance: PRESENT: no acute distress Eye exam: PRESENT: PERRLA Respiratory exam: PRESENT: clear to auscultation vu Cardiovascular exam: PRESENT: +S1, +S2 GI/Abdominal exam: PRESENT: soft Extremities exam: PRESENT: other - Lymphedema of both legs Neurological exam: PRESENT: alert Results Laboratory Results: 02/20/18 06:09 02/20/18 06:09 Impressions: Chest X-Ray 02/18/18 20:38 IMPRESSION: Patchy perihilar density with some peribronchial or cuffing and patchy areas of density in the lung bases. Question developing infectious or inflammatory process 2010 [employer]- All Rights Reserved Assessment & Plan - Diagnosis (1) Cellulitis of left leg Is this a current diagnosis for this admission?: Yes Plan: Continue IV antibiotic (2) Chronic atrial fibrillation Is this a current diagnosis for this admission?: Yes (3) Diabetes mellitus type 2 in obese Is this a current diagnosis for this admission?: Yes
[2018-02-22] MEDS: 1/2 NORMAL SALINE 1,000 ML IV PRN (19:07)
[2018-02-22] MEDS ORDERED: MAGNESIUM OXIDE 400 MG TABLET PO SCH (20:00)
[2018-02-22] MEDS: RIVAROXABAN 10 MG TABLET PO SCH (21:12)
[2018-02-22] MEDS ORDERED: VANCOMYCIN HCL INJ 1000 MG VIAL ONE (22:18)
[2018-02-22] MEDS ORDERED: VANCOMYCIN HCL INJ 500 MG VIAL ONE (22:19)
[2018-02-23] MEDS: LANSOPRAZOLE 30 MG TAB.RAP.DR PO SCH (05:11)
[2018-02-23] MEDS: PIPERACILLIN SODIUM/TAZOBACTAM 3.375 GM in NORMAL SALINE 100 ML IV SCH ×3 (05:11→21:04)
[2018-02-23] MEDS: VANCOMYCIN HCL 1,500 MG in DEXTROSE 5%-WATER 250 ML IV SCH ×3 (05:36→22:59)
[2018-02-23] MEDS: DILTIAZEM HCL 120 MG CAP.SR.24H PO SCH ×2 (08:46→20:58)
[2018-02-23] MEDS: MAGNESIUM OXIDE 400 MG TABLET PO SCH ×2 (08:46→20:58)
[2018-02-23] MEDS: POTASSIUM CHLORIDE 10 MEQ CAPSULE.ER PO SCH (08:46)
[2018-02-23] MEDS: ATORVASTATIN CALCIUM 20 MG TABLET PO SCH (08:46)
[2018-02-23] MEDS: HYDROCHLOROTHIAZIDE 25 MG TABLET PO SCH (08:47)
[2018-02-23] MEDS: SOTALOL HCL 80 MG TABLET PO SCH ×2 (08:47→20:58)
[2018-02-23] MEDS: METFORMIN HCL 500 MG TABLET PO SCH ×2 (08:48→16:58)
[2018-02-23] MEDS: SITAGLIPTIN PHOSPHATE 25 MG TABLET PO SCH ×2 (08:48→16:58)
[2018-02-23] MEDS: ASPIRIN 81 MG TABLET, ENT COATED PO SCH (08:49)
[2018-02-23] MEDS: BENAZEPRIL HCL 20 MG TABLET PO SCH (08:49)
--- NOTE | 2018-02-23 14:24 | PDOC PROGRESS REPORT ---
Subjective Progress Note for:: 02/23/18 Subjective:: Patient seen by the bedside, yesterday he had episode of tachycardia, he was started on normal saline at low infusion rate Reason For Visit: SEPSIS, CELLULITIS Physical Exam Vital Signs: Temp Pulse Resp BP Pulse Ox 99.0 F 67 16 108/71 96 02/23/18 11:39 02/23/18 11:39 02/23/18 11:39 02/23/18 11:39 02/23/18 11:39 Intake & Output 02/22/18 02/23/18 02/24/18 06:59 06:59 06:59 Intake Total 2583 2242 Output Total 324 Balance 2259 2242 Weight 137 kg 137.5 kg General appearance: PRESENT: no acute distress Eye exam: PRESENT: PERRLA Cardiovascular exam: PRESENT: +S1, +S2 GI/Abdominal exam: PRESENT: soft Neurological exam: PRESENT: alert Results Laboratory Results: 02/20/18 06:09 02/20/18 06:09 Impressions: Chest X-Ray 02/18/18 20:38 IMPRESSION: Patchy perihilar density with some peribronchial or cuffing and patchy areas of density in the lung bases. Question developing infectious or inflammatory process 2010 [employer]- All Rights Reserved Assessment & Plan - Diagnosis (1) Cellulitis of left leg Is this a current diagnosis for this admission?: Yes Plan: Continue IV antibiotic (2) Chronic atrial fibrillation Is this a current diagnosis for this admission?: Yes (3) Diabetes mellitus type 2 in obese Is this a current diagnosis for this admission?: Yes
[2018-02-23] MEDS: RIVAROXABAN 10 MG TABLET PO SCH (20:57)
[2018-02-23] MEDS: 1/2 NORMAL SALINE 1,000 ML IV PRN (23:02)
[2018-02-24] MEDS: PIPERACILLIN SODIUM/TAZOBACTAM 3.375 GM in NORMAL SALINE 100 ML IV SCH (05:41)
[2018-02-24] MEDS: LANSOPRAZOLE 30 MG TAB.RAP.DR PO SCH (06:46)
[2018-02-24] MEDS: VANCOMYCIN HCL 1,500 MG in DEXTROSE 5%-WATER 250 ML IV SCH (07:01)
[2018-02-24] MEDS: SOTALOL HCL 80 MG TABLET PO SCH (08:29)
[2018-02-24] MEDS: ASPIRIN 81 MG TABLET, ENT COATED PO SCH (08:30)
[2018-02-24] MEDS: DILTIAZEM HCL 120 MG CAP.SR.24H PO SCH (08:30)
[2018-02-24] MEDS: METFORMIN HCL 500 MG TABLET PO SCH ×2 (08:30→17:21)
[2018-02-24] MEDS: SITAGLIPTIN PHOSPHATE 25 MG TABLET PO SCH ×2 (08:30→17:21)
[2018-02-24] MEDS: HYDROCHLOROTHIAZIDE 25 MG TABLET PO SCH (08:30)
[2018-02-24] MEDS: BENAZEPRIL HCL 20 MG TABLET PO SCH (08:31)
[2018-02-24] MEDS: POTASSIUM CHLORIDE 10 MEQ CAPSULE.ER PO SCH (08:31)
[2018-02-24] MEDS: ATORVASTATIN CALCIUM 20 MG TABLET PO SCH (08:31)
[2018-02-24] MEDS: MAGNESIUM OXIDE 400 MG TABLET PO SCH (08:31)
[2018-02-24 09:15] LABS: ABSOLUTE EOSINOPHILS # (AUTO) 0.1 10^3/uL (0.0-0.6); ABSOLUTE LYMPHOCYTES (AUTO) 0.9 10^3/uL (0.5-4.7); ABSOLUTE MONOCYTES (AUTO) 0.9 10^3/uL (0.1-1.4); ABSOLUTE NEUT (AUTO) 7.3 10^3/uL (1.7-8.2); BASOPHILS % (AUTO) 0.5 % (0-2); EOSINOPHILS % (AUTO) 1.1 % (0-6); HEMATOCRIT 37.6 % (37.9-51.0); HEMOGLOBIN 12.7 g/dL (13.5-17.0); LYMPHOCYTES % (AUTO) 9.6 % (13-45); MEAN CORPUSCULAR HEMOGLOBIN 30.9 pg (27.0-33.4); MEAN CORPUSCULAR HGB CONC 33.8 g/dL (32.0-36.0); MEAN CORPUSCULAR VOLUME 91 fl (80-97); MONOCYTES % (AUTO) 9.9 % (3-13); PLATELET COUNT 191 10^3/uL (150-450); RED BLOOD COUNT 4.12 10^6/uL (4.35-5.55); RED CELL DISTRIBUTION WIDTH 13.5 % (11.5-14.0); SEGMENTED NEUTROPHILS % (AUTO) 78.9 % (42-78); TOTAL CELLS COUNTED % (AUTO) 100 %; WHITE BLOOD COUNT 9.2 10^3/uL (4.0-10.5)
[2018-02-24] MEDS ORDERED: DOXYCYCLINE HYCLATE 100 MG TABLET PO SCH (10:00)
--- NOTE | 2018-02-24 17:41 | PDOC DISCHARGE SUMMARY ---
General - Admit/Disc Date/PCP Admission Date/Primary Care Provider: 02/18/18 23:35 CHAPIN SEBLE Discharge Date: 02/24/18 - Discharge Diagnosis (1) Cellulitis of left leg Is this a current diagnosis for this admission?: Yes (2) Probable sepsis Is this a current diagnosis for this admission?: Yes (3) Diabetes mellitus type 2 in obese Is this a current diagnosis for this admission?: Yes (4) HTN (hypertension) Is this a current diagnosis for this admission?: Yes (5) HLD (hyperlipidemia) Is this a current diagnosis for this admission?: Yes (6) Chronic atrial fibrillation Is this a current diagnosis for this admission?: Yes (7) Osteoarthritis involving multiple joints on both sides of body Is this a current diagnosis for this admission?: Yes - Additional Information Discharge Diet: Cardiac, Diabetic Discharge Activity: Activity As Tolerated Prescriptions: Doxycycline Hyclate [Vibramycin 100 mg Tablet] 100 mg PO Q12 #14 tablet Home Medications: Aspirin [Aspirin 81 mg Chewable Tablet] 81 mg PO DAILY 02/19/18 Benazepril HCl [Lotensin 20 mg Tablet] 20 mg PO DAILY 02/19/18 Diltiazem HCl [Diltiazem ER] 120 mg PO Q12 02/19/18 Hydrochlorothiazide [Hydrodiuril 25 mg Tablet] 25 mg PO QAM 02/19/18 Magnesium Oxide [Magnesium] 500 mg PO Q12 02/19/18 Nitroglycerin [Nitrostat] 0.4 mg SL PRN PRN 02/19/18 Potassium Chloride [Klor-Con] 30 meq PO DAILY 02/19/18 Rivaroxaban [Xarelto 10 mg Tablet] 20 mg PO QPM 02/19/18 Rosuvastatin Calcium [Crestor] 10 mg PO DAILY 02/19/18 Sitagliptin Phos/Metformin HCl [Janumet 50-1,000 mg Tablet] 1 each PO Q12 Sotalol HCl [Sotalol AF] 120 mg PO Q12 02/19/18 Doxycycline Hyclate [Vibramycin 100 mg Tablet] 100 mg PO Q12 #14 tablet History of Present Illness Patient complains of: Fever and left groin pain History of Present Illness: BRANDY ANDREA JR is a 57 year old male patient known to my practice who presented to the ED with worsening left leg and groin pain. Patient reported onset of pain for about 2 days prior to his presentation and has been applying Vaseline ointment to leg without improvement. There is persistent dryness to his leg skin. He reported similar event floyd couple of years. Due to onset of fever and worsening groin pain he decided to seek medical attention. He denied any recent instrumentation or procedure in the left leg but admitted to frequent travelling to [place] to check on his sick mother. There is history of chronic lymphedema of lower extremities. He claimed compliance with use f compression stocking. His evaluation in the ED was remarkable for leukocytosis with left shift and fever with temperature at 101.8F. His morbidities include chronic atrial fibrillation, Diabetes Mellitus Type 2, Hypertension, Hyperlipidemia, and osteoarthritis. He was advised hospitalization for further evaluation and management. Hospital Course Hospital Course: Patient was treated with IV Zosyn and Vancomycin. His fever and leukocytosis did resolved. His blood culture was reported no growth x 5 days. He was transition to Doxycycline 100 mg p.o bid x 7 days upon discharge. he will follow up in the office as instructed upon discharge. Physical Exam Vital Signs: Temp Pulse Resp BP Pulse Ox 98.5 F 65 16 118/73 99 02/24/18 15:40 02/24/18 15:40 02/24/18 15:40 02/24/18 15:40 02/24/18 15:40 Intake & Output 02/23/18 02/24/18 02/25/18 06:59 06:59 06:59 Intake Total 2242 3054 Output Total 500 Balance 2242 2554 Weight 137.5 kg 137.3 kg Physical Exam: General appearance: PRESENT: no acute distress, morbidly obese Head exam: PRESENT: atraumatic, normocephalic Eye exam: PRESENT: conjunctiva pink, EOMI, PERRLA. ABSENT: scleral icterus Ear exam: PRESENT: normal external ear exam Mouth exam: PRESENT: moist Respiratory exam: PRESENT: clear to auscultation vu Cardiovascular exam: PRESENT: irregular rhythm, +S1, +S2. ABSENT: diastolic murmur, systolic murmur Vascular exam: ABSENT: pallor GI/Abdominal exam: PRESENT: normal bowel sounds, soft. ABSENT: distended, guarding, mass, organomegaly, rebound, tenderness Extremities exam: PRESENT: pedal edema - chronic lymphedema with stasis changes. Musculoskeletal exam: ABSENT: tenderness Neurological exam: PRESENT: alert, awake, oriented to person, oriented to place , oriented to time, oriented to situation, CN II-XII grossly intact. ABSENT: motor sensory deficit Psychiatric exam: PRESENT: appropriate affect, normal mood. ABSENT: homicidal ideation, suicidal ideation Skin exam: PRESENT: dry, warm Results Laboratory Results: 02/24/18 08:56 02/20/18 06:09 02/24/18 08:56 WBC 9.2 RBC 4.12 L Hgb 12.7 L Hct 37.6 L MCV 91 MCH 30.9 MCHC 33.8 RDW 13.5 Plt Count 191 Seg Neutrophils % 78.9 H Lymphocytes % 9.6 L Monocytes % 9.9 Eosinophils % 1.1 Basophils % 0.5 Absolute Neutrophils 7.3 Absolute Lymphocytes 0.9 Absolute Monocytes 0.9 Absolute Eosinophils 0.1 Absolute Basophils 0.0 Impressions: Chest X-Ray 02/18/18 20:38 IMPRESSION: Patchy perihilar density with some peribronchial or cuffing and patchy areas of density in the lung bases. Question developing infectious or inflammatory process 2010 [email or web address]- All Rights Reserved Qualifiers - * PATIENT BEING DISCHARGED WITH ANY OF THE FOLLOWING DIAGNOSIS: No Plan Discharge Plan: Discharge home today with follow up in the office as instructed upon discharge.
[2018-02-24 17:51] VITALS: BP 119/74
== END 2018-02-24 18:55 | disposition home or self-care (01) | DRG 872 ==
LOC: ER 19:06 → EH 23:35 → 4S 02-19 04:48
PROVIDERS: ADMIT Internal Medicine Geriatric Medicine; ATTEND Internal Medicine Geriatric Medicine
DX: A41.9 Sepsis, unspecified organism (principal); L03.116 Cellulitis of left lower limb; Z68.41 Body mass index [BMI] 40.0-44.9, adult; E11.9 Type 2 diabetes mellitus without complications; I10 Essential (primary) hypertension; E66.01 Morbid (severe) obesity due to excess calories; E78.00 Pure hypercholesterolemia, unspecified; I48.2 Chronic atrial fibrillation; M15.3 Secondary multiple arthritis; Z79.82 Long term (current) use of aspirin; Z79.899 Other long term (current) drug therapy; Z82.49 Family history of ischemic heart disease and other diseases of the circulatory system
CPT/HCPCS: 36415; 71046; 80053; 80061; 80202; 81001; 82803; 82962; 83036; 83605; 85025; 85610; 87040; 87086; 93005; 93010; 96365; 96375; 99285; J2543; J3370; J3490; J7060; J7120

== ENCOUNTER → 2018-04-18 | Outpatient (CLI) | payer BC ==
[2018-04-18 12:17] LABS: CHOLESTEROL 154.97 mg/dL (0-200); TRIGLYCERIDES 110 mg/dL (<150)
[2018-04-18 12:32] LABS: DIRECT LDL 116 mg/dL (<100)
== END ==
LOC: LAB 11:30
PROVIDERS: ATTEND Internal Medicine Cardiovascular Disease
DX: E78.00 Pure hypercholesterolemia, unspecified (principal); E83.42 Hypomagnesemia
CPT/HCPCS: 36415; 80061; 83735

== ENCOUNTER → 2018-05-02 | Outpatient (CLI) | payer BC | LOC: LAB 16:03 | PROVIDERS: ATTEND Internal Medicine Cardiovascular Disease | DX: Z53.9 Procedure and treatment not carried out, unspecified reason (principal) ==

== ENCOUNTER → 2018-05-06 | Outpatient (CLI) | payer BC ==
[2018-05-06 16:50] LABS: APPEARANCE,URINE CLEAR; BILIRUBIN,URINE NEGATIVE (NEGATIVE); COLOR,URINE YELLOW; GLUCOSE, URINE NEGATIVE (NEGATIVE); KETONES,URINE NEGATIVE (NEGATIVE); LEUKOCYTE ESTERASE,URINE NEGATIVE (NEGATIVE); NITRITE,URINE NEGATIVE (NEGATIVE); PROTEIN,URINE NEGATIVE (NEGATIVE); URINE SPECIFIC GRAVITY 1.014; UROBILINOGEN,URINE NEGATIVE mg/dL (<2.0)
[2018-05-06 17:04] LABS: HEMATOCRIT 39.3 % (37.9-51.0); HEMOGLOBIN 13.4 g/dL (13.5-17.0); MEAN CORPUSCULAR HEMOGLOBIN 31.3 pg (27.0-33.4); MEAN CORPUSCULAR HGB CONC 34.1 g/dL (32.0-36.0); MEAN CORPUSCULAR VOLUME 92 fl (80-97); PLATELET COUNT 250 10^3/uL (150-450); RED BLOOD COUNT 4.28 10^6/uL (4.35-5.55); RED CELL DISTRIBUTION WIDTH 13.8 % (11.5-14.0); WHITE BLOOD COUNT 8.7 10^3/uL (4.0-10.5)
[2018-05-06 17:25] LABS: ALANINE AMINOTRANSFERASE 27 U/L (21-72); ALBUMIN 4.3 g/dL (3.5-5.0); ALKALINE PHOSPHATASE 46 U/L (38-126); ANION GAP 15 (5-19); ASPARTATE AMINO TRANSFERASE 21 U/L (17-59); BILIRUBIN,DIRECT 0.2 mg/dL (0.0-0.4); BILIRUBIN,TOTAL 0.9 mg/dL (0.2-1.3); BLOOD UREA NITROGEN 14 mg/dL (7-20); CALCIUM 9.7 mg/dL (8.4-10.2); CARBON DIOXIDE 29 mmol/L (22-30); CHLORIDE 97 mmol/L (98-107); GLUCOSE 147 mg/dL (75-110); POTASSIUM 3.9 mmol/L (3.6-5.0); SODIUM 141.3 mmol/L (137-145); TOTAL PROTEIN 7.7 g/dL (6.3-8.2)
== END ==
LOC: LAB 16:36
PROVIDERS: ATTEND Internal Medicine Cardiovascular Disease
DX: I48.0 Paroxysmal atrial fibrillation (principal); Z79.899 Other long term (current) drug therapy; Z79.01 Long term (current) use of anticoagulants
CPT/HCPCS: 36415; 80048; 80076; 81001; 82272; 83735; 85027; 85730

== ENCOUNTER → 2018-07-05 | Outpatient (CLI) | payer BC ==
[2018-07-05 09:34] LABS: APPEARANCE,URINE CLEAR; BILIRUBIN,URINE NEGATIVE (NEGATIVE); COLOR,URINE YELLOW; GLUCOSE, URINE NEGATIVE (NEGATIVE); KETONES,URINE TRACE mg/dL (NEGATIVE); LEUKOCYTE ESTERASE,URINE NEGATIVE (NEGATIVE); NITRITE,URINE NEGATIVE (NEGATIVE); PROTEIN,URINE NEGATIVE (NEGATIVE); URINE SPECIFIC GRAVITY 1.019; UROBILINOGEN,URINE NEGATIVE mg/dL (<2.0)
[2018-07-05 10:20] LABS: ALANINE AMINOTRANSFERASE 41 U/L (21-72); ALBUMIN 4.2 g/dL (3.5-5.0); ALKALINE PHOSPHATASE 45 U/L (38-126); ANION GAP 8 (5-19); ASPARTATE AMINO TRANSFERASE 19 U/L (17-59); BLOOD UREA NITROGEN 15 mg/dL (7-20); CALCIUM 9.5 mg/dL (8.4-10.2); CARBON DIOXIDE 31 mmol/L (22-30); CHLORIDE 99 mmol/L (98-107); GLUCOSE 161 mg/dL (75-110); POTASSIUM 4.2 mmol/L (3.6-5.0); SODIUM 138.4 mmol/L (137-145)
[2018-07-05 10:26] LABS: HEMATOCRIT 38.5 % (37.9-51.0); HEMOGLOBIN 13.2 g/dL (13.5-17.0); MEAN CORPUSCULAR HEMOGLOBIN 31.7 pg (27.0-33.4); MEAN CORPUSCULAR HGB CONC 34.3 g/dL (32.0-36.0); MEAN CORPUSCULAR VOLUME 93 fl (80-97); PLATELET COUNT 206 10^3/uL (150-450); RED BLOOD COUNT 4.16 10^6/uL (4.35-5.55); RED CELL DISTRIBUTION WIDTH 13.8 % (11.5-14.0); WHITE BLOOD COUNT 6.7 10^3/uL (4.0-10.5)
== END ==
LOC: LAB 09:15
PROVIDERS: ATTEND Internal Medicine Cardiovascular Disease
DX: I48.0 Paroxysmal atrial fibrillation (principal); Z79.01 Long term (current) use of anticoagulants; Z79.899 Other long term (current) drug therapy
CPT/HCPCS: 36415; 80048; 80076; 81001; 82272; 83735; 85027; 85730

== ENCOUNTER → 2018-08-29 | Outpatient (CLI) | payer BC ==
[2018-08-29 16:42] LABS: CHOLESTEROL 126.95 mg/dL (0-200); TRIGLYCERIDES 90 mg/dL (<150)
[2018-08-29 16:53] LABS: DIRECT LDL 86 mg/dL (<100)
== END ==
LOC: LAB 15:58
PROVIDERS: ATTEND Internal Medicine Cardiovascular Disease
DX: E78.00 Pure hypercholesterolemia, unspecified (principal); Z79.899 Other long term (current) drug therapy
CPT/HCPCS: 36415; 80061

== ENCOUNTER → 2018-10-25 | Outpatient (CLI) | payer BC | LOC: OD 11:25 | PROVIDERS: ATTEND Internal Medicine Cardiovascular Disease | DX: M10.079 Idiopathic gout, unspecified ankle and foot (principal); I48.0 Paroxysmal atrial fibrillation; Z79.01 Long term (current) use of anticoagulants; Z79.899 Other long term (current) drug therapy ==

== ENCOUNTER → 2018-10-25 | Outpatient (CLI) | payer BC | LOC: LAB 11:20 | PROVIDERS: ATTEND Internal Medicine Cardiovascular Disease | DX: Z53.9 Procedure and treatment not carried out, unspecified reason (principal) ==

== ENCOUNTER → 2018-10-27 | Outpatient (CLI) | payer BC ==
[2018-10-27 11:05] LABS: APPEARANCE,URINE CLEAR; BILIRUBIN,URINE NEGATIVE (NEGATIVE); COLOR,URINE YELLOW; GLUCOSE, URINE 150 mg/dL (NEGATIVE); KETONES,URINE NEGATIVE (NEGATIVE); LEUKOCYTE ESTERASE,URINE NEGATIVE (NEGATIVE); NITRITE,URINE NEGATIVE (NEGATIVE); PROTEIN,URINE NEGATIVE (NEGATIVE); URINE SPECIFIC GRAVITY 1.024; UROBILINOGEN,URINE NEGATIVE mg/dL (<2.0)
[2018-10-27 11:32] LABS: HEMATOCRIT 38.7 % (37.9-51.0); HEMOGLOBIN 12.9 g/dL (13.5-17.0); MEAN CORPUSCULAR HEMOGLOBIN 30.5 pg (27.0-33.4); MEAN CORPUSCULAR HGB CONC 33.3 g/dL (32.0-36.0); MEAN CORPUSCULAR VOLUME 92 fl (80-97); PLATELET COUNT 201 10^3/uL (150-450); RED BLOOD COUNT 4.22 10^6/uL (4.35-5.55); RED CELL DISTRIBUTION WIDTH 13.1 % (11.5-14.0); WHITE BLOOD COUNT 6.9 10^3/uL (4.0-10.5)
[2018-10-27 11:55] LABS: ALANINE AMINOTRANSFERASE 20 U/L (21-72); ALBUMIN 3.8 g/dL (3.5-5.0); ALKALINE PHOSPHATASE 46 U/L (38-126); ANION GAP 12 (5-19); ASPARTATE AMINO TRANSFERASE 15 U/L (17-59); BILIRUBIN,DIRECT 0.2 mg/dL (0.0-0.4); BILIRUBIN,TOTAL 1.1 mg/dL (0.2-1.3); BLOOD UREA NITROGEN 11 mg/dL (7-20); CALCIUM 8.9 mg/dL (8.4-10.2); CARBON DIOXIDE 26 mmol/L (22-30); CHLORIDE 102 mmol/L (98-107); GLUCOSE 133 mg/dL (75-110); POTASSIUM 4.1 mmol/L (3.6-5.0); SODIUM 140.2 mmol/L (137-145); TOTAL PROTEIN 7.2 g/dL (6.3-8.2)
== END ==
LOC: LAB 10:52
PROVIDERS: ATTEND Internal Medicine Cardiovascular Disease
DX: I48.0 Paroxysmal atrial fibrillation (principal); Z79.899 Other long term (current) drug therapy; Z79.01 Long term (current) use of anticoagulants
CPT/HCPCS: 36415; 80048; 80076; 81001; 82272; 83735; 85027; 85730

== ENCOUNTER → 2019-02-06 | Outpatient (CLI) | payer BC ==
[2019-02-06 08:52] LABS: HEMATOCRIT 38.9 % (37.9-51.0); HEMOGLOBIN 13.1 g/dL (13.5-17.0); MEAN CORPUSCULAR HEMOGLOBIN 31.1 pg (27.0-33.4); MEAN CORPUSCULAR HGB CONC 33.6 g/dL (32.0-36.0); MEAN CORPUSCULAR VOLUME 92 fl (80-97); PLATELET COUNT 182 10^3/uL (150-450); RED BLOOD COUNT 4.21 10^6/uL (4.35-5.55); RED CELL DISTRIBUTION WIDTH 13.7 % (11.5-14.0); WHITE BLOOD COUNT 7.1 10^3/uL (4.0-10.5)
[2019-02-06 09:03] LABS: APPEARANCE,URINE SLIGHTLY-CLOUDY; BILIRUBIN,URINE NEGATIVE (NEGATIVE); COLOR,URINE YELLOW; GLUCOSE, URINE NEGATIVE (NEGATIVE); KETONES,URINE NEGATIVE (NEGATIVE); LEUKOCYTE ESTERASE,URINE NEGATIVE (NEGATIVE); NITRITE,URINE NEGATIVE (NEGATIVE); PROTEIN,URINE NEGATIVE (NEGATIVE); URINE SPECIFIC GRAVITY 1.024; UROBILINOGEN,URINE NEGATIVE mg/dL (<2.0)
[2019-02-06 09:11] LABS: ALBUMIN 4.1 g/dL (3.5-5.0); ALKALINE PHOSPHATASE 44 U/L (38-126); ANION GAP 10 (5-19); ASPARTATE AMINO TRANSFERASE 21 U/L (17-59); BILIRUBIN,DIRECT 0.1 mg/dL (0.0-0.4); BILIRUBIN,TOTAL 0.8 mg/dL (0.2-1.3); BLOOD UREA NITROGEN 13 mg/dL (7-20); CARBON DIOXIDE 28 mmol/L (22-30); CHLORIDE 99 mmol/L (98-107); GLUCOSE 153 mg/dL (75-110); POTASSIUM 3.9 mmol/L (3.6-5.0); TOTAL PROTEIN 7.2 g/dL (6.3-8.2)
== END ==
LOC: LAB 08:35
PROVIDERS: ATTEND Internal Medicine Cardiovascular Disease
DX: I48.0 Paroxysmal atrial fibrillation (principal); Z79.01 Long term (current) use of anticoagulants; Z79.899 Other long term (current) drug therapy
CPT/HCPCS: 36415; 80048; 80076; 81001; 82272; 83735; 85027; 85730

== ENCOUNTER → 2019-04-01 | Outpatient (CLI) | payer BC ==
[2019-04-01 13:54] LABS: HEMATOCRIT 38.7 % (37.9-51.0); HEMOGLOBIN 12.8 g/dL (13.5-17.0); MEAN CORPUSCULAR HEMOGLOBIN 30.6 pg (27.0-33.4); MEAN CORPUSCULAR HGB CONC 33.2 g/dL (32.0-36.0); MEAN CORPUSCULAR VOLUME 92 fl (80-97); PLATELET COUNT 218 10^3/uL (150-450); RED BLOOD COUNT 4.19 10^6/uL (4.35-5.55); RED CELL DISTRIBUTION WIDTH 13.7 % (11.5-14.0); WHITE BLOOD COUNT 6.9 10^3/uL (4.0-10.5)
[2019-04-01 14:02] LABS: APPEARANCE,URINE CLEAR; BILIRUBIN,URINE NEGATIVE (NEGATIVE); COLOR,URINE YELLOW; GLUCOSE, URINE NEGATIVE (NEGATIVE); KETONES,URINE NEGATIVE (NEGATIVE); LEUKOCYTE ESTERASE,URINE NEGATIVE (NEGATIVE); NITRITE,URINE NEGATIVE (NEGATIVE); PROTEIN,URINE NEGATIVE (NEGATIVE); URINE SPECIFIC GRAVITY 1.017; UROBILINOGEN,URINE NEGATIVE mg/dL (<2.0)
[2019-04-01 14:03] LABS: ALKALINE PHOSPHATASE 48 U/L (38-126); ANION GAP 8 (5-19); ASPARTATE AMINO TRANSFERASE 24 U/L (17-59); BILIRUBIN,DIRECT 0.2 mg/dL (0.0-0.4); BLOOD UREA NITROGEN 13 mg/dL (7-20); CALCIUM 9.2 mg/dL (8.4-10.2); CARBON DIOXIDE 28 mmol/L (22-30); CHLORIDE 99 mmol/L (98-107); CHOLESTEROL 106.03 mg/dL (0-200); GLUCOSE 139 mg/dL (75-110); POTASSIUM 4.4 mmol/L (3.6-5.0); TOTAL PROTEIN 7.5 g/dL (6.3-8.2); TRIGLYCERIDES 86 mg/dL (<150)
[2019-04-01 14:16] LABS: DIRECT LDL 67 mg/dL (<100)
== END ==
LOC: LAB 13:40
PROVIDERS: ATTEND Internal Medicine Cardiovascular Disease
DX: E78.00 Pure hypercholesterolemia, unspecified (principal); I48.0 Paroxysmal atrial fibrillation; Z79.01 Long term (current) use of anticoagulants; Z79.899 Other long term (current) drug therapy
CPT/HCPCS: 36415; 80048; 80061; 80076; 81001; 82272; 83735; 85027; 85730

== ENCOUNTER → 2019-07-25 | Outpatient (CLI) | payer BC ==
[2019-07-25 10:59] LABS: APPEARANCE,URINE CLEAR; BILIRUBIN,URINE NEGATIVE (NEGATIVE); COLOR,URINE YELLOW; GLUCOSE, URINE >=500 mg/dL (NEGATIVE); KETONES,URINE NEGATIVE (NEGATIVE); LEUKOCYTE ESTERASE,URINE NEGATIVE (NEGATIVE); NITRITE,URINE NEGATIVE (NEGATIVE); PROTEIN,URINE NEGATIVE (NEGATIVE); URINE SPECIFIC GRAVITY 1.022; UROBILINOGEN,URINE NEGATIVE mg/dL (<2.0)
[2019-07-25 11:13] LABS: ABSOLUTE EOSINOPHILS # (AUTO) 0.1 10^3/uL (0.0-0.6); ABSOLUTE LYMPHOCYTES (AUTO) 1.5 10^3/uL (0.5-4.7); ABSOLUTE MONOCYTES (AUTO) 0.6 10^3/uL (0.1-1.4); ABSOLUTE NEUT (AUTO) 5.6 10^3/uL (1.7-8.2); BASOPHILS % (AUTO) 0.3 % (0-2); EOSINOPHILS % (AUTO) 1.3 % (0-6); HEMOGLOBIN 13.7 g/dL (13.5-17.0); LYMPHOCYTES % (AUTO) 18.7 % (13-45); MEAN CORPUSCULAR HEMOGLOBIN 30.8 pg (27.0-33.4); MEAN CORPUSCULAR HGB CONC 33.5 g/dL (32.0-36.0); MEAN CORPUSCULAR VOLUME 92 fl (80-97); MONOCYTES % (AUTO) 7.2 % (3-13); PLATELET COUNT 184 10^3/uL (150-450); RED BLOOD COUNT 4.45 10^6/uL (4.35-5.55); RED CELL DISTRIBUTION WIDTH 13.9 % (11.5-14.0); SEGMENTED NEUTROPHILS % (AUTO) 72.5 % (42-78); TOTAL CELLS COUNTED % (AUTO) 100 %; WHITE BLOOD COUNT 7.8 10^3/uL (4.0-10.5)
[2019-07-25 11:24] LABS: RED BLOOD COUNT 4.45 10^6/uL (4.35-5.55); WHITE BLOOD COUNT 7.8 10^3/uL (4.0-10.5)
[2019-07-25 11:25] LABS: HEMOGLOBIN 13.7 g/dL (13.5-17.0); MEAN CORPUSCULAR HEMOGLOBIN 30.8 pg (27.0-33.4); MEAN CORPUSCULAR HGB CONC 33.5 g/dL (32.0-36.0); MEAN CORPUSCULAR VOLUME 92 fl (80-97); PLATELET COUNT 184 10^3/uL (150-450); RED CELL DISTRIBUTION WIDTH 13.9 % (11.5-14.0)
[2019-07-25 11:34] LABS: CHOLESTEROL 113.65 mg/dL (0-200); TRIGLYCERIDES 118 mg/dL (<150)
[2019-07-25 11:35] LABS: ALBUMIN 3.9 g/dL (3.5-5.0); ALKALINE PHOSPHATASE 50 U/L (38-126); ANION GAP 12 (5-19); ASPARTATE AMINO TRANSFERASE 22 U/L (17-59); BILIRUBIN,DIRECT 0.2 mg/dL (0.0-0.4); BILIRUBIN,TOTAL 1.3 mg/dL (0.2-1.3); BLOOD UREA NITROGEN 15 mg/dL (7-20); CARBON DIOXIDE 27 mmol/L (22-30); CHLORIDE 97 mmol/L (98-107); GLUCOSE 251 mg/dL (75-110); TOTAL PROTEIN 7.4 g/dL (6.3-8.2)
[2019-07-25 11:44] LABS: DIRECT LDL 77 mg/dL (<100)
== END ==
LOC: LAB 10:34
PROVIDERS: ATTEND Internal Medicine Geriatric Medicine
DX: I48.0 Paroxysmal atrial fibrillation (principal); E11.65 Type 2 diabetes mellitus with hyperglycemia; Z79.01 Long term (current) use of anticoagulants; Z79.899 Other long term (current) drug therapy; Z12.5 Encounter for screening for malignant neoplasm of prostate
CPT/HCPCS: 36415; 80048; 80061; 80076; 81001; 82272; 83735; 84153; 85025; 85730

== ENCOUNTER → 2019-10-19 | Outpatient (CLI) | payer BC ==
[2019-10-19 14:59] LABS: ABSOLUTE EOSINOPHILS # (AUTO) 0.1 10^3/uL (0.0-0.6); ABSOLUTE LYMPHOCYTES (AUTO) 1.8 10^3/uL (0.5-4.7); ABSOLUTE MONOCYTES (AUTO) 0.5 10^3/uL (0.1-1.4); ABSOLUTE NEUT (AUTO) 4.4 10^3/uL (1.7-8.2); BASOPHILS % (AUTO) 0.4 % (0-2); EOSINOPHILS % (AUTO) 1.4 % (0-6); HEMATOCRIT 40.1 % (37.9-51.0); HEMOGLOBIN 13.9 g/dL (13.5-17.0); MEAN CORPUSCULAR HEMOGLOBIN 31.5 pg (27.0-33.4); MEAN CORPUSCULAR HGB CONC 34.6 g/dL (32.0-36.0); MEAN CORPUSCULAR VOLUME 91 fl (80-97); MONOCYTES % (AUTO) 7.8 % (3-13); PLATELET COUNT 172 10^3/uL (150-450); RED CELL DISTRIBUTION WIDTH 13.4 % (11.5-14.0); SEGMENTED NEUTROPHILS % (AUTO) 64.4 % (42-78); TOTAL CELLS COUNTED % (AUTO) 100 %; WHITE BLOOD COUNT 6.8 10^3/uL (4.0-10.5)
[2019-10-19 15:04] LABS: HEMATOCRIT 40.1 % (37.9-51.0); HEMOGLOBIN 13.9 g/dL (13.5-17.0); MEAN CORPUSCULAR HEMOGLOBIN 31.5 pg (27.0-33.4); MEAN CORPUSCULAR HGB CONC 34.6 g/dL (32.0-36.0); MEAN CORPUSCULAR VOLUME 91 fl (80-97); PLATELET COUNT 172 10^3/uL (150-450); RED CELL DISTRIBUTION WIDTH 13.4 % (11.5-14.0); WHITE BLOOD COUNT 6.8 10^3/uL (4.0-10.5)
[2019-10-19 15:19] LABS: APPEARANCE,URINE CLEAR; BILIRUBIN,URINE NEGATIVE (NEGATIVE); COLOR,URINE YELLOW; GLUCOSE, URINE 150 mg/dL (NEGATIVE); KETONES,URINE TRACE mg/dL (NEGATIVE); LEUKOCYTE ESTERASE,URINE NEGATIVE (NEGATIVE); NITRITE,URINE NEGATIVE (NEGATIVE); PROTEIN,URINE 30 mg/dL (NEGATIVE); URINE SPECIFIC GRAVITY 1.026; UROBILINOGEN,URINE NEGATIVE mg/dL (<2.0)
[2019-10-19 15:28] LABS: ALBUMIN 4.2 g/dL (3.5-5.0); ALKALINE PHOSPHATASE 50 U/L (38-126); ANION GAP 9 (5-19); ASPARTATE AMINO TRANSFERASE 25 U/L (17-59); BILIRUBIN,TOTAL 1.2 mg/dL (0.2-1.3); BLOOD UREA NITROGEN 18 mg/dL (7-20); CALCIUM 9.1 mg/dL (8.4-10.2); CARBON DIOXIDE 28 mmol/L (22-30); CHLORIDE 97 mmol/L (98-107); GLUCOSE 192 mg/dL (75-110); POTASSIUM 3.9 mmol/L (3.6-5.0); TOTAL PROTEIN 7.6 g/dL (6.3-8.2)
[2019-10-19 15:32] LABS: ALBUMIN 4.2 g/dL (3.5-5.0); ALKALINE PHOSPHATASE 50 U/L (38-126); ANION GAP 9 (5-19); ASPARTATE AMINO TRANSFERASE 25 U/L (17-59); BILIRUBIN,TOTAL 1.2 mg/dL (0.2-1.3); BLOOD UREA NITROGEN 18 mg/dL (7-20); CALCIUM 9.1 mg/dL (8.4-10.2); CARBON DIOXIDE 28 mmol/L (22-30); CHLORIDE 97 mmol/L (98-107); CHOLESTEROL 108.97 mg/dL (0-200); DIRECT LDL 70 mg/dL (<100); GLUCOSE 192 mg/dL (75-110); POTASSIUM 3.9 mmol/L (3.6-5.0); TOTAL PROTEIN 7.6 g/dL (6.3-8.2); TRIGLYCERIDES 101 mg/dL (<150)
== END ==
LOC: OD 13:58
PROVIDERS: ATTEND Physician Assistant
DX: E83.42 Hypomagnesemia (principal); E78.00 Pure hypercholesterolemia, unspecified; I10 Essential (primary) hypertension; E11.65 Type 2 diabetes mellitus with hyperglycemia; I48.0 Paroxysmal atrial fibrillation; Z79.01 Long term (current) use of anticoagulants; Z79.899 Other long term (current) drug therapy
CPT/HCPCS: 36415; 80053; 80061; 81001; 82272; 83036; 83735; 85025; 85730; 87070

== ENCOUNTER → 2020-02-05 | Outpatient (CLI) | payer BC ==
[2020-02-05 13:44] LABS: HEMATOCRIT 39.4 % (37.9-51.0); HEMOGLOBIN 13.3 g/dL (13.5-17.0); MEAN CORPUSCULAR HEMOGLOBIN 31.1 pg (27.0-33.4); MEAN CORPUSCULAR HGB CONC 33.7 g/dL (32.0-36.0); MEAN CORPUSCULAR VOLUME 93 fl (80-97); PLATELET COUNT 192 10^3/uL (150-450); RED BLOOD COUNT 4.26 10^6/uL (4.35-5.55); RED CELL DISTRIBUTION WIDTH 13.7 % (11.5-14.0); WHITE BLOOD COUNT 7.7 10^3/uL (4.0-10.5)
[2020-02-05 14:03] LABS: APPEARANCE,URINE CLEAR; BILIRUBIN,URINE NEGATIVE (NEGATIVE); COLOR,URINE YELLOW; GLUCOSE, URINE 50 mg/dL (NEGATIVE); KETONES,URINE NEGATIVE (NEGATIVE); LEUKOCYTE ESTERASE,URINE NEGATIVE (NEGATIVE); NITRITE,URINE NEGATIVE (NEGATIVE); PROTEIN,URINE NEGATIVE (NEGATIVE); URINE SPECIFIC GRAVITY 1.017; UROBILINOGEN,URINE NEGATIVE mg/dL (<2.0)
[2020-02-05 14:08] LABS: ALBUMIN 4.1 g/dL (3.5-5.0); ALKALINE PHOSPHATASE 48 U/L (38-126); ANION GAP 8 (5-19); ASPARTATE AMINO TRANSFERASE 37 U/L (17-59); BILIRUBIN,TOTAL 1.4 mg/dL (0.2-1.3); BLOOD UREA NITROGEN 12 mg/dL (7-20); CARBON DIOXIDE 28 mmol/L (22-30); CHLORIDE 98 mmol/L (98-107); GLUCOSE 169 mg/dL (75-110); POTASSIUM 4.1 mmol/L (3.6-5.0); TOTAL PROTEIN 7.5 g/dL (6.3-8.2)
[2020-02-07 22:12] LABS: CHOLESTEROL 105.95 mg/dL (0-200); TRIGLYCERIDES 116 mg/dL (<150)
[2020-02-07 22:23] LABS: DIRECT LDL 67 mg/dL (<100)
== END ==
LOC: OD 12:51
PROVIDERS: ATTEND Internal Medicine Cardiovascular Disease
DX: I48.0 Paroxysmal atrial fibrillation (principal); Z79.01 Long term (current) use of anticoagulants
CPT/HCPCS: 36415; 80048; 80061; 80076; 81001; 82272; 83735; 85027; 85730

== ENCOUNTER → 2020-05-19 | Outpatient (CLI) | payer BC ==
[2020-05-19 10:14] LABS: HEMATOCRIT 38.7 % (37.9-51.0); HEMOGLOBIN 12.9 g/dL (13.5-17.0); MEAN CORPUSCULAR HEMOGLOBIN 31.2 pg (27.0-33.4); MEAN CORPUSCULAR HGB CONC 33.2 g/dL (32.0-36.0); MEAN CORPUSCULAR VOLUME 94 fl (80-97); PLATELET COUNT 227 10^3/uL (150-450); RED BLOOD COUNT 4.12 10^6/uL (4.35-5.55); RED CELL DISTRIBUTION WIDTH 13.8 % (11.5-14.0); WHITE BLOOD COUNT 6.3 10^3/uL (4.0-10.5)
[2020-05-19 10:25] LABS: APPEARANCE,URINE SLIGHTLY-CLOUDY; BILIRUBIN,URINE NEGATIVE (NEGATIVE); COLOR,URINE YELLOW; GLUCOSE, URINE 150 mg/dL (NEGATIVE); KETONES,URINE NEGATIVE (NEGATIVE); LEUKOCYTE ESTERASE,URINE NEGATIVE (NEGATIVE); NITRITE,URINE NEGATIVE (NEGATIVE); PROTEIN,URINE NEGATIVE (NEGATIVE); URIC ACID CRYSTALS,URINE FEW /HPF; URINE SPECIFIC GRAVITY 1.025; UROBILINOGEN,URINE NEGATIVE mg/dL (<2.0)
[2020-05-19 10:48] LABS: ALBUMIN 4.2 g/dL (3.5-5.0); ALKALINE PHOSPHATASE 52 U/L (38-126); ANION GAP 5 (5-19); ASPARTATE AMINO TRANSFERASE 34 U/L (17-59); BILIRUBIN,DIRECT 0.1 mg/dL (0.0-0.4); BILIRUBIN,TOTAL 0.7 mg/dL (0.2-1.3); BLOOD UREA NITROGEN 14 mg/dL (7-20); CALCIUM 9.6 mg/dL (8.4-10.2); CARBON DIOXIDE 33 mmol/L (22-30); CHLORIDE 100 mmol/L (98-107); GLUCOSE 153 mg/dL (75-110); POTASSIUM 4.3 mmol/L (3.6-5.0); TOTAL PROTEIN 7.4 g/dL (6.3-8.2)
== END ==
LOC: OD 09:11
PROVIDERS: ATTEND Internal Medicine Cardiovascular Disease
DX: I48.0 Paroxysmal atrial fibrillation (principal); Z79.01 Long term (current) use of anticoagulants; Z79.899 Other long term (current) drug therapy
CPT/HCPCS: 36415; 80048; 80076; 81001; 82272; 83735; 85027; 85730